=== PATIENT | male | born 1960 | race Caucasian/White ===

== ENCOUNTER 2016-11-05 22:10 | Observation (INO) | payer SELFPAY ==
[~2016-11-05] VITALS: Ht 180.3 cm; Wt 103.7 kg
[~2016-11-05 22:10] MED LIST: IBUP-1547 PO; IBUP-1724 PO; NO ROUTINE MEDS
--- NOTE | 2016-11-05 22:12 | NUR ---
GOWN PT CLOTHES REMOVED AND BELONGING PUT IN PERSONAL BAG AND GOWN APPLIED TO PT.
--- OUTSIDE RECORDS SUMMARY | 2016-11-05 22:14 | XMS REPORT | Continuity of Care Document ---
Author Author [facility] Organization [facility] Address Unknown Phone Unavailable Allergies Active Description Code Type Severity Reaction Onset Reported/Identified Relationship to Patient Clinical Status Yes penicillin NKMA N/A N/A 07/21/2015 Medications Problems Procedures Results Encounters ACCT No. Visit Date/Time Discharge Status Pt. Type Provider Facility Loc./Unit Complaint [id number] 07/21/2015 13:00:00 2015 16:30:00 DIS Outpatient Wilbur SAEZ, Rob Stanton [facility] Fall
--- OUTSIDE RECORDS SUMMARY | 2016-11-05 22:15 | XMS REPORT | Continuity of Care Document ---
Author Author [facility] Organization [facility] Address Unknown Phone Unavailable Support Name Relationship Address Phone LETICIA MONTEIRO MD Caregiver [address] [place] [address] [place] [address] OCDY CLINTON MD Caregiver [address] [place] [address] MEGHAN TAN APRN Caregiver [address] [place] [address] CHRISTIAN SALINAS Next Of Kin [address] [place] [id number] Insurance Providers Payer Name Policy Number Subscriber Name Relationship Self Pay Hugh Yousif 18 Self Advance Directives Directive Response Recorded Date/Time Advanced Directives Type None 12/19/13 1:03pm Problems Medical Problems Problem Onset Date Status Alcohol dependence with withdrawal Unknown Active UTI (lower urinary tract infection) Unknown Active Alcohol dependence with withdrawal Unknown Active Medications Medication Dose Route Sig Days/Qty Instructions Order Date Discontinued Date Status Aspirin 325 Mg PO 07/16/10 Active Oxazepam 15 Mg PO THREE TIMES A DAY 32 Qty 2 caps TID x 2 days then 12/19 Active Ciprofloxacin Hcl 500 Mg PO TWICE A DAY 10 Days 12/19/13 Active Social History Social History Problem Response Recorded Date/Time Smoking Status Current every day smoker 12/19/2013 1:37pm Hx Alcohol Use Y LAST DRANK ON 12/18/13 12/19/2013 1:37pm Hospital Discharge Instructions No hospital discharge instructions. Plan of Care No plan of care. Functional Status No functional status results. Allergies, Adverse Reactions, Alerts Allergen Type Severity Reaction Status Last Updated Penicillin Allergy Unknown Active 02/17/12 Immunizations Name Given Type Hx Influenza Vaccination No Historical Hx Influenza Vaccination No Historical Vital Signs Acute Vital Signs Vital Response Date/Time Temperature (Fahrenheit) 97.1 deg F (96.8 - 99.1) Temperature (Calculated Celsius) 36.64122 degrees C (36.0 - 37.3) Pulse Rate (adult) 83 bpm (60 - 100) Respiratory Rate 25 breaths/min (10 - 20) O2 Sat by Pulse Oximetry 96 % (90 - 100) Blood Pressure 129/85 mm Hg Height 5 ft 11 in Weight 268 lb Body Mass Index 37.0 kg/m^2 Results Test Source Date Result Interp. Ref. Range Comments Acetaminophen Level December 19, 2013 1:15pm < 10 UG/ML L 10-30 TOXIC <4 HR POST INGESTION: >150 MG/L;TOXIC <12 HR POST INGESTION: >50 MG/L Activated Partial Thromboplast Time July 16, 2010 10:44am 31.1 SEC N 24-36 Alanine Aminotransferase (ALT/SGPT) December 19, 2013 1:15pm 64 U/L N 21-72 Albumin December 19, 2013 1:15pm 4.3 G/DL N 3.5-5.0 Albumin/Globulin Ratio December 19, 2013 1:15pm 1.1 RATIO N 1.1-2.2 Alcohol, Quantitative December 19, 2013 1:15pm <10 MG/DL - Alkaline Phosphatase December 19, 2013 1:15pm 124 U/L N 38-126 Anion Gap December 19, 2013 1:15pm 17 MEQ/L H 5-15 Aspartate Amino Transf (AST/SGOT) December 19, 2013 1:15pm 78 U/L H 17-59 B-Type Natriuretic Peptide July 16, 2010 10:44am 111 PG/ML H 15-100 BUN/Creatinine Ratio December 19, 2013 1:15pm 29 RATIO H 6-26 Basophils # (Auto) December 19, 2013 1:15pm 0.1 T/MM3 N 0-0.2 Basophils (%) (Auto) December 19, 2013 1:15pm 1.2 % N 0-2 Blood Urea Nitrogen December 19, 2013 1:15pm 23.0 MG/DL H 9-20 Calcium Level December 19, 2013 1:15pm 9.7 MG/DL N 8.4-10.2 Calculated Osmolality December 19, 2013 1:15pm 271 MOSM/KG N 261-280 Carbon Dioxide Level December 19, 2013 1:15pm 20 MEQ/L L 22-30 Chloride Level December 19, 2013 1:15pm 101 MEQ/L N 98-107 Cholesterol Level December 09, 2010 3:00pm 209 MG/DL H 132-199 Cholesterol/HDL Ratio December 09, 2010 3:00pm 3.6 RATIO N 0-5.0 Conjugated Bilirubin February 17, 2012 3:15pm 0.00 MG/DL N 0.00-0.30 Creatinine December 19, 2013 1:15pm 0.8 MG/DL N 0.8-1.5 Eosinophils # (Auto) December 19, 2013 1:15pm 0.0 T/MM3 N 0-0.5 Eosinophils (%) (Auto) December 19, 2013 1:15pm 0.6 % N 0-4 Globulin December 19, 2013 1:15pm 3.9 G/DL H 2.4-3.6 Glucose Level December 19, 2013 1:15pm 110 MG/DL N 75-110 Group A Streptococcus Screen March 17, 2009 9:20pm Negative - Strep culture confirmation to follow Hematocrit December 19, 2013 1:15pm 54.5 % H 41-53 Hemoglobin December 19, 2013 1:15pm 18.5 GM/DL H 13.5-17.5 Hemoglobin A1c December 23, 2010 9:50am 6.1 % N 6-7 SENT TO [facility]--- 27/05 1401 --- HGBA1C previously reported as: % SENT TO [facility] J <6.0 NON-DIABETIC RANGE 6.0-7.0 ADA THERAPEUTIC RANGE >7.0 ACTION SUGGESTED Hepatitis A IgM Antibody December 23, 2010 9:50am Negative - Hepatitis B Core IgM Antibody December 23, 2010 9:50am Negative - Hepatitis B Surface Antigen December 23, 2010 9:50am Negative - Hepatitis C Antibody December 23, 2010 9:50am Negative - LDL Cholesterol, Calculated December 09, 2010 3:00pm 136.4 N 66-159 Lipase December 19, 2013 1:15pm 38 U/L N 23-300 Lymphocytes # (Auto) December 19, 2013 1:15pm 2.0 T/MM3 N 1-4.8 Lymphocytes (%) (Auto) December 19, 2013 1:15pm 30.2 % N 23-45 Magnesium Level December 19, 2013 1:15pm 1.5 MG/DL L 1.6-2.3 Mean Corpuscular Hemoglobin December 19, 2013 1:15pm 30.8 UUG N 26-34 Mean Corpuscular Hemoglobin Concent December 19, 2013 1:15pm 33.9 GM/DL N 31 -37 Mean Corpuscular Volume December 19, 2013 1:15pm 90.7 UM3 N 80-100 Mean Platelet Volume December 19, 2013 1:15pm 10.4 UM3 N 9.4-12.4 Monocytes # (Auto) December 19, 2013 1:15pm 0.5 T/MM3 N 0-0.8 Monocytes (%) (Auto) December 19, 2013 1:15pm 7.7 % N 0-9.0 Neutrophils # (Auto) December 19, 2013 1:15pm 4.1 T/MM3 N 1.8-7.7 Neutrophils (%) (Auto) December 19, 2013 1:15pm 60.2 % N 33-66 Phosphorus Level December 19, 2013 1:15pm 3.6 MG/DL N 2.5-4.5 Platelet Count December 19, 2013 1:15pm 224 T/MM3 N 130-400 Potassium Level December 19, 2013 1:15pm 3.6 MEQ/L N 3.6-5 Prothromb Time International Ratio July 16, 2010 10:44am 1.34 H 0.86- 1.10 THERAPUTIC RANGE=2.00-3.00 FOR ANTI-THROMBOSIS THERAPUTIC RANGE=2.50- 3.50 FOR IMPLANTED VALVE RDW Standard Deviation December 19, 2013 1:15pm 53.4 FL H 36.9-50.2 Rapid Plasma Reagin December 23, 2010 9:50am Nonreactive - Red Blood Count December 19, 2013 1:15pm 6.01 M/MM3 H 4.50-5.90 Salicylates Level December 19, 2013 1:15pm < 1.0 MG/DL L 2-20 Sodium Level December 19, 2013 1:15pm 138 MEQ/L N 134-144 Thyroid Stimulating Hormone (TSH) December 09, 2010 3:00pm 1.09 MIU/L N 0.47 -4.68 Total Bilirubin December 19, 2013 1:15pm 1.50 MG/DL H 0.20-1.30 Total Protein December 19, 2013 1:15pm 8.2 G/DL N 6.3-8.2 Triglycerides Level December 09, 2010 3:00pm 73 MG/DL N 40-160 Troponin I December 19, 2013 1:15pm 0.086 ng/ml N 0-0.12 Unconjugated Bilirubin February 17, 2012 3:15pm 0.00 MG/DL N 0.00-1.10 Uric Acid July 16, 2010 10:44am 5.6 MG/DL N 3.5-8.5 Urine Amphetamines Screen February 17, 2012 3:30pm Negative NG/ML - Urine Bacteria December 19, 2013 1:40pm 3+ H - Has specimen been collected/ obtained? Y Urine Barbiturates Screen February 17, 2012 3:30pm Positive NG/ML - Urine Benzodiazepines Screen February 17, 2012 3:30pm Negative NG/ML - Urine Bilirubin December 19, 2013 1:40pm 3+ H - Has specimen been collected /obtained? Y Urine Blood December 19, 2013 1:40pm Trace-intact H - Has specimen been collected/obtained? Y Urine Cocaine Screen February 17, 2012 3:30pm Negative NG/ML - Urine Collection Type December 19, 2013 1:40pm Cleancatch-midstream - Has specimen been collected/obtained? Y Urine Color December 19, 2013 1:40pm [place] - Has specimen been collected /obtained? Y Urine Culture Indicated December 19, 2013 1:40pm Cult reflexed &setup - Has specimen been collected/obtained? Y Urine Drug Screen Confirmation February 17, 2012 3:56pm Sent out - Urine Glucose (UA) December 19, 2013 1:40pm Trace H - Has specimen been collected/obtained? Y Urine Ketones December 19, 2013 1:40pm 2+ H - Has specimen been collected/ obtained? Y Urine Leukocyte Esterase December 19, 2013 1:40pm 1+ H - Has specimen been collected/obtained? Y Urine Mucus December 19, 2013 1:40pm Present - Has specimen been collected/obtained? Y Urine Nitrite December 19, 2013 1:40pm Positive H - Has specimen been collected/obtained? Y Urine Opiates Screen February 17, 2012 3:30pm Negative NG/ML - Urine Phencyclidine Screen February 17, 2012 3:30pm Negative NG/ML - Urine Protein December 19, 2013 1:40pm 2+ H - Has specimen been collected/ obtained? Y Urine RBC December 19, 2013 1:40pm None seen /HPF - Has specimen been collected/obtained? Y Urine Specific [place] December 19, 2013 1:40pm 1.015 - Has specimen been collected/obtained? Y Urine Squamous Epithelial Cells December 19, 2013 1:40pm >50 - Has specimen been collected/obtained? Y Urine Tricyclic Antidepressants February 17, 2012 3:30pm Negative NG/ML - Urine Turbidity December 19, 2013 1:40pm Sl cloudy - Has specimen been collected/obtained? Y Urine Urobilinogen December 19, 2013 1:40pm >=8.0 EU/DL H - Has specimen been collected/obtained? Y Urine WBC December 19, 2013 1:40pm 20-30 /HPF H - Has specimen been collected/obtained? Y Urine pH December 19, 2013 1:40pm 6.5 - Has specimen been collected/ obtained? Y VLDL Cholesterol December 09, 2010 3:00pm 14.6 MG/DL N 0-28 White Blood Count December 19, 2013 1:15pm 6.8 T/MM3 N 4.5-11.0 Chemistry Specimen Hemolysis December 19, 2013 1:15pm < 15 0-25 0-25: No Hemolysis.26-70: Slight Hemolysis - can falsely elevate K and Urine Protein. 71-285: Moderate Hemolysis - can falsely elevate K, Troponin I, CA 19-9, PTH, CSF GLucose, and Urine Protein, and can falsely decrease Phenytoin. 286-999: Gross Hemolysis - can falsely elevate K, Troponin I, CA 19-9, PTH, CSF Glucose, and Urine Protine, and can falsely decrease Phenytoin. Recommend specimen recollection. Lab Scanned Report February 19, 2012 3:12pm [facility]FER[facility] [id number] - HDL Cholesterol Direct December 09, 2010 3:00pm 58 MG/DL N 40-60 HIV (1&2) Antibody Rapid December 23, 2010 9:50am Negative - Urine Cannabinoids Screen February 17, 2012 3:30pm Positive NG/ML - Turbidity December 19, 2013 1:15pm < 20 0-20 Glomerular Filtration Rate Calc December 19, 2013 1:15pm 102 - Immature Granulocyte # (Auto) December 19, 2013 1:15pm 0.01 T/MM3 N 0.00- 0.03 Immature Granulocyte % (Auto) December 19, 2013 1:15pm 0.1 % N 0.0-0.5 Icterus Index December 19, 2013 1:15pm < 2 0-7 Urine Microscopic Not Indicated February 17, 2012 3:30pm Not indicated - Has specimen been collected/obtained? Y Group A Streptococcus Culture Throat March 17, 2009 9:28pm Urine Culture Urine, Clean Catch-Midstream December 19, 2013 2:25pm Strep Mitis/ Oralis Procedures Procedure Status Date Provider(s) THER/PROPH/DIAG IV INF INIT completed 12/19/13 THER/DIAG CONCURRENT INF completed 12/19/13 Encounters Encounter Location Date/Time Departed Emergency Room [facility] 12/19/13 1:02pm Recent Diagnosis
--- OUTSIDE RECORDS SUMMARY | 2016-11-05 22:15 | XMS REPORT | Continuity of Care Document ---
Author Author [facility] Organization [facility] Address Unknown Phone Unavailable Support Name Relationship Address Phone KIMMY FONTANEZ DO Caregiver [address] [place] [address] Unavailable CHRISTIAN SALINAS Next Of Kin [address] [place] [address] Insurance Providers Guarantor Hugh Yousif Address [address] [facility] [address] [place] [address] Email [id number] Payer Self Pay Subscriber's Name BenjaHugh Welsh Relationship 18 Self Advance Directives Directive Response Recorded Date/Time Advanced Directives Type None 12/19/13 1:03pm Chief Complaint and Reason for Visit Chief Complaint Suicide Ideation/Attempt Reason for Visit Alcohol abuse Suicidal ideation Problems Active Problems Medical Problem Onset Date Status Abrasion Unknown Acute Alcohol dependence Unknown Acute Alcohol dependence with withdrawal Unknown Acute Alcohol dependence with withdrawal Unknown Acute Dehydration Unknown Acute Depression Unknown Acute ETOH abuse Unknown Acute Elevated transaminase level Unknown Acute Face lacerations Unknown Acute Facial trauma Unknown Acute Fall Unknown Acute Tenderness of neck Unknown Acute UTI (lower urinary tract infection) Unknown Acute Past Problems Medical Problem Onset Date Alcohol abuse Unknown Alcohol dependence Unknown Alcohol intoxication Unknown Atypical chest pain Unknown Cellulitis of right ankle Unknown Dehydration Unknown Fall Unknown Manipulative behavior Unknown Right knee pain Unknown Suicidal ideation Unknown Tenderness of neck Unknown Medications Current Home Medications Medication Dose Units Route Directions Days Qty Instructions Start Date Ibuprofen 200 Mg Tablet 400 Mg Oral Every 4 Hours as needed for Pain 07/22/16 Ibuprofen 800 Mg Tablet 1 Tab Oral Every 8 Hours as needed for Pain 10 Days 30 Tablet 07/22/16 No Routine Meds 05/15/16 Past Home Medications Medication Directions Ordered Status Ibuprofen 200 Mg Tablet, 2 Tab Oral Every 4 Hours as needed for Pain Discontinued Social History Social History Problem Response Recorded Date/Time Onset Date Status Hx Substance Use No 08/05/2016 1:10pm Not Applicable Not Applicable Hx Alcohol Use Y HALF A LITER OF VODKA/DAY FOR THE LAST 2-3 DAYS 08/05/2016 1 :10pm Not Applicable Not Applicable Tobacco Usage smoke 12/21/2013 11:20pm Not Applicable Not Applicable Query Response Start Date Stop Date Smoking Status Current every day smoker Hospital Discharge Instructions No hospital discharge instructions. Plan of Care Discharge Date 08/05/16 9:40pm Disposition 01 DISCHARGED HOME, SELF-CARE Condition at Discharge Improved Instructions/Education Provided Abuse of Alcohol (ED) Suicide Prevention for Adults (ED) Prescriptions See Medication Section Referrals [facility] Order Date: 1 Week Additional Instructions/Education Drink lots of fluids. Follow up with your doctor or [facility]. Follow up with [facility] for help with your alcohol use. Follow up with [facility] or another mental health provider. Care Plan and Goals Physician Care Plan Problem: SI Goal: Follow up with primary care provider Instructions: Take medications and follow care plan as discussed/written Functional Status No functional status results. Allergies, Adverse Reactions, Alerts Allergen Type Severity Reaction Status Last Updated Penicillin Allergy Unknown Active 08/05/16 Immunizations Query Response on File Recorded Date/Time Hx Influenza Vaccination No 04/14/14 9:59pm Hx Tetanus, Diptheria, Pertussis N UNKNOWN 04/14/14 9:50pm Hx Influenza Vaccination No 04/14/14 9:59pm Hx Tetanus, Diptheria, Pertussis N UNKNOWN 04/14/14 9:50pm Tdap Vaccine Hx PT UNSURE OF 07/22/16 5:50pm Vital Signs Acute Vital Signs Vital Response Date/Time Temperature (Fahrenheit) 98.3 deg F (96.8 - 99.1) 08/05/2016 9:40pm Temperature (Calculated Celsius) 36.12935 degrees C (36.0 - 37.3) 08/05/2016 9:40pm Pulse Rate (adult) 70 bpm (60 - 100) 08/05/2016 9:40pm Respiratory Rate 22 breaths/min (10 - 20) 08/05/2016 9:40pm O2 Sat by Pulse Oximetry 97 % (90 - 100) 08/05/2016 9:40pm Blood Pressure 103/68 mm Hg 08/05/2016 9:40pm Height (Feet) 5 feet 08/05/2016 1:03pm Height (Inches) 11.00 inches 08/05/2016 1:03pm Weight (Kilograms) 108.600 kg 08/05/2016 1:03pm Body Mass Index (BMI) 33.0 08/05/2016 1:03pm Results Laboratory Results Test Name Result Units Flags Reference Collection Date/Time Result Date/ Time Comments D-Dimer 355 NG/ML H 0-230 06/15/2016 2:12pm 06/15/2016 3:07pm <230 NG/ ML D-DU=PRESUMPTIVE NEGATIVE FOR PE OR DVT >230 NG/ML D-DU=ADDITIONAL EVAL FOR PE OR DVT RECOMMENDED Lipase 34 U/L 23-300 06/15/2016 2:12pm 06/15/2016 3:26pm C-Reactive Protein 40.1 MG/L H 0-9 07/22/2016 12:46pm 07/22/2016 1:54pm Body Fluid Color YELLOW 07/22/2016 3:47pm 07/22/2016 4:09pm Body Fluid Turbidity CLOUDY 07/22/2016 3:47pm 07/22/2016 4:09pm Body Fluid Total Nucleated Cells 9129 /MM3 07/22/2016 3:47pm 2016 4:09pm Body Fluid RBC 4000 /MM3 07/22/2016 3:47pm 07/22/2016 4:09pm Body Fluid Neutrophils 76 % 07/22/2016 3:47pm 07/22/2016 4:23pm Body Fluid Lymphocytes 4 % 07/22/2016 3:47pm 07/22/2016 4:23pm Body Fluid Monocytes 20 % 07/22/2016 3:47pm 07/22/2016 4:23pm Body Fluid Eosinophils 0 % 07/22/2016 3:47pm 07/22/2016 4:23pm Body Fluid Basophils 0 % 07/22/2016 3:47pm 07/22/2016 4:23pm Body Fluid Other Cells (%) 0 % 07/22/2016 3:47pm 07/22/2016 4:23pm Body Fluid Type SYNOVIAL FLUID 07/22/2016 3:47pm 07/22/2016 4:09pm Body Fluid Crystal Appearance Cloudy A 07/22/2016 3:47pm 07/23/2016 11:52am Body Fluid Crystal Color Yellow A 07/22/2016 3:47pm 07/23/2016 11: 52am Body Fluid Crystal Quantity None 07/22/2016 3:47pm 07/23/2016 11: 52am Synovial Fluid Source - 07/22/2016 3:47pm 07/23/2016 11:52am Crystal Exam, Synovial Fluid performed at [facility], [address] [facility], [place] [address] Cbx Operator Solange Stanton DO White Blood Count 6.3 T/MM3 4.5-11.0 08/05/2016 1:08/05/2016 1: 45pm Red Blood Count 4.47 M/MM3 L 4.50-5.90 08/05/2016 1:08/05/2016 1: 45pm Hemoglobin 14.1 GM/DL 13.5-17.5 08/05/2016 1:08/05/2016 1:45pm Hematocrit 42.2 % 41-53 08/05/2016 1:08/05/2016 1:45pm Mean Corpuscular Volume 94.4 UM3 80-100 08/05/2016 1:08/05/2016 1: 45pm Mean Corpuscular Hemoglobin 31.5 UUG 26-34 08/05/2016 1:2016 1:45pm Mean Corpuscular Hemoglobin Concent 33.4 GM/DL 31-37 08/05/2016 1:08/05/2016 1:45pm RDW Standard Deviation 50.3 FL H 36.9-50.2 08/05/2016 1:08/05/2016 1:45pm Platelet Count 239 T/MM3 130-400 08/05/2016 1:08/05/2016 1:45pm Mean Platelet Volume 9.1 UM3 L 9.4-12.4 08/05/2016 1:08/05/2016 1: 45pm Neutrophils (%) (Auto) 60.4 % 33-66 08/05/2016 1:08/05/2016 1: 45pm Lymphocytes (%) (Auto) 31.2 % 23-45 08/05/2016 1:08/05/2016 1: 45pm Monocytes (%) (Auto) 6.3 % 0-9.0 08/05/2016 1:08/05/2016 1:45pm Eosinophils (%) (Auto) 1.1 % 0-4 08/05/2016 1:08/05/2016 1:45pm Basophils (%) (Auto) 0.8 % 0-2 08/05/2016 1:31pm 08/05/2016 1:45pm Immature Granulocyte % (Auto) 0.2 % 0.0-0.5 08/05/2016 1:31p2016 1:45pm Absolute Neutrophils (auto) 3.8 T/MM3 1.8-7.7 08/05/2016 1:31pm 2016 1:45pm Absolute Lymphocytes (auto) 2.0 T/MM3 1-4.8 08/05/2016 1:31p2016 1:45pm Absolute Monocytes (auto) 0.4 T/MM3 0-0.8 08/05/2016 1:31pm 08/05/2016 1:45pm Absolute Eosinophils (auto) 0.1 T/MM3 0-0.5 08/05/2016 1:31p 2016 1:45pm Absolute Basophils (auto) 0.1 T/MM3 0-0.2 08/05/2016 1:31p 08/05/2016 1:45pm Absolute Immature Granulocyte (auto 0.01 T/MM3 0.00-0.03 08/05/2016 1: 31p 08/05/2016 1:45pm Icterus Index < 2 0-7 08/05/2016 1:10pm 08/05/2016 1:33pm Chemistry Specimen Hemolysis < 15 0-25 08/05/2016 4:18pm 08/05/2016 6 :29pm 0-25: Specimen Exhibited No Hemolysis. Turbidity < 20 0-20 08/05/2016 1:10pm 08/05/2016 1:33pm Sodium Level 141 MEQ/L 134-144 08/05/2016 1:10pm 08/05/2016 1:33pm Potassium Level 3.7 MEQ/L 3.6-5 08/05/2016 1:10pm 08/05/2016 1:33pm Chloride Level 107 MEQ/L 98-107 08/05/2016 1:10pm 08/05/2016 1:33pm Carbon Dioxide Level 21 MEQ/L L 22-30 08/05/2016 1:10pm 08/05/2016 1: 33pm Anion Gap 13 MEQ/L 5-15 08/05/2016 1:10pm 08/05/2016 1:33pm Blood Urea Nitrogen 5.0 MG/DL L 9-20 08/05/2016 1:10pm 08/05/2016 1: 33pm Creatinine 0.5 MG/DL L 0.8-1.5 08/05/2016 1:10pm 08/05/2016 1:33pm BUN/Creatinine Ratio 10 RATIO 6-26 08/05/2016 1:10pm 08/05/2016 1:33pm Glomerular Filtration Rate Calc 173 08/05/2016 1:10pm 08/05/2016 1: 33pm Glucose Level 86 MG/DL 75-110 08/05/2016 1:1008/05/2016 1:33pm Calculated Osmolality 267 MOSM/KG 261-280 08/05/2016 1:10pm 08/05/2016 1:33pm Calcium Level 8.7 MG/DL 8.4-10.2 08/05/2016 1:10pm 08/05/2016 1:33pm Total Bilirubin 0.60 MG/DL 0.20-1.30 08/05/2016 1:10pm 08/05/2016 1: 33pm Alkaline Phosphatase 96 U/L 38-126 08/05/2016 1:10pm 08/05/2016 1:33pm Total Protein 7.2 G/DL 6.3-8.2 08/05/2016 1:10pm 08/05/2016 1:33pm Albumin 3.7 G/DL 3.5-5.0 08/05/2016 1:10pm 08/05/2016 1:33pm Globulin 3.5 G/DL 2.4-3.6 08/05/2016 1:10pm 08/05/2016 1:33pm Albumin/Globulin Ratio 1.1 RATIO 1.1-2.2 08/05/2016 1:1008/05/2016 1 :33pm Aspartate Amino Transf (AST/SGOT) 25 U/L 17-59 08/05/2016 1:10pm 2016 1:33pm Alanine Aminotransferase (ALT/SGPT) 26 U/L 21-72 08/05/2016 1:10pm 07/2016 1:33pm Troponin I < 0.012 ng/ml 0-0.12 08/05/2016 4:18pm 08/05/2016 6:29pm Troponin values with a difference of 55% increase from orginal troponin value represent a true biological DELTA value. (%increase Calc=Orginal Troponin value, divided by subsequent Troponin value, multiplied by 100) Acetaminophen Level < 10 UG/ML L 10-30 08/05/2016 1:10pm 08/05/2016 1: 33pm TOXIC <4 HR POST INGESTION: >150 MG/L; TOXIC <12 HR POST INGESTION: >50 MG/L Salicylates Level < 1.0 MG/DL L 2-20 08/05/2016 1:10pm 08/05/2016 1: 33pm Alcohol, Quantitative 114 MG/DL <10 08/05/2016 7:05pm 08/05/2016 7: 23pm Urine Collection Type CLEANCATCH-MIDSTREAM 08/05/2016 2:17pm 2016 2:24pm Urine Color YELLOW YELLOW 08/05/2016 2:17pm 08/05/2016 2:24pm Urine Turbidity CLEAR CLEAR 08/05/2016 2:17pm 08/05/2016 2:24pm Urine Specific [place] <=1.005 L 1.015-1.025 08/05/2016 2:17pm 2016 2:24pm Urine pH 6.0 5.0-8.0 08/05/2016 2:17pm 08/05/2016 2:24pm Urine Leukocyte Esterase NEGATIVE NEGATIVE 08/05/2016 2:17pm 2016 2:24pm Urine Nitrite NEGATIVE NEGATIVE 08/05/2016 2:17pm 08/05/2016 2:24pm Urine Protein NEGATIVE NEGATIVE 08/05/2016 2:17pm 08/05/2016 2:24pm Urine Glucose (UA) NEGATIVE NEGATIVE 08/05/2016 2:17pm 08/05/2016 2: 24pm Urine Ketones NEGATIVE NEGATIVE 08/05/2016 2:17pm 08/05/2016 2:24pm Urine Urobilinogen 0.2 EU/DL NORMAL 08/05/2016 2:17pm 08/05/2016 2: 24pm Urine Bilirubin NEGATIVE NEGATIVE 08/05/2016 2:17pm 08/05/2016 2: 24pm Urine Blood NEGATIVE NEGATIVE 08/05/2016 2:17pm 08/05/2016 2:24pm Urinalysis Comment MICROSCOPIC NOT IND. 08/05/2016 2:172016 2:24pm Microbiology Results Procedure Source Organism/Result Collection Date/Time Result Date/Time Result Status Body Fluid Culture Synovial Fluid, Left Knee NO GROWTH AFTER 5 DAYS 2016 3:47pm 07/27/2016 3:50pm Final Procedures Procedure Status Date Provider(s) Hydrate iv infusion add-on Completed 05/15/16 Ther/proph/diag iv inf init Completed 05/15/16 Ther/proph/diag inj iv push Completed 06/15/16 Drain/inj joint/bursa w/o us Completed 07/22/16 THEO ESTRADA DO Ther/proph/diag inj iv push Completed 07/22/16 Encounters Encounter Location Arrival/Admit Date Discharge/Depart Date Attending Provider Departed Emergency Room [facility] 08/05/16 1:01pm 08/05/16 9: 40pm KIMMY FONTANEZ DO Departed Emergency Room [facility] 07/22/16 11:27am 07/22/16 6: 05pm THEO ESTRADA DO Departed Emergency Room [facility] 06/15/16 1:45pm 06/15/16 4: 55pm CATHLEEN ZAMORA MD Departed Emergency Room [facility] 05/15/16 8:50pm 05/15/16 11: 50pm TAHIRA GONZALEZ DO Recent Diagnosis
--- OUTSIDE RECORDS SUMMARY | 2016-11-05 22:15 | XMS REPORT | Continuity of Care Document ---
Author Author [facility] Organization [facility] Address Unknown Phone Unavailable Support Name Relationship Address Phone FRANCO KASPER MD Caregiver [facility] [address] [place] [address] Unavailable CHRISTIAN SALINAS Next Of Kin [address] [place] [address] Insurance Providers Payer Name Policy Number Subscriber Name Relationship Premises Med(Medicare/Caid/Tr Hugh Yousif 19 Self Advance Directives Directive Response Recorded Date/Time Advanced Directives Type None 12/19/13 1:03pm Problems Medical Problems Problem Onset Date Status Alcohol dependence with withdrawal Unknown Active UTI (lower urinary tract infection) Unknown Active Alcohol dependence with withdrawal Unknown Active ETOH abuse Unknown Active Abrasion Unknown Active Facial trauma Unknown Active Face lacerations Unknown Active Medications Medication Dose Route Sig Days/Qty Instructions Order Date Discontinued Date Status Ibuprofen Unknown Dose PO Q4H 04/14/14 Active Social History Social History Problem Response Recorded Date/Time Smoking Status Current every day smoker 12/19/2013 1:37pm Hx Alcohol Use Y INTOXICATED TODAY 04/14/2014 9:59pm Hospital Discharge Instructions No hospital discharge instructions. Plan of Care No plan of care. Functional Status Query Response Date Recorded Physical Hygiene Self April 14, 2014 9:59pm Disabilities None April 14, 2014 9:59pm Devices Used None April 14, 2014 9:59pm Dressing Self April 14, 2014 9:59pm Ambulation Self April 14, 2014 9:59pm Diet Self April 14, 2014 9:59pm Mental Status Alert April 14, 2014 10:26pm Disabilities None April 14, 2014 9:59pm Devices Used None April 14, 2014 9:59pm Physical Hygiene Self April 14, 2014 9:59pm Dressing Self April 14, 2014 9:59pm Ambulation Self April 14, 2014 9:59pm Diet Self April 14, 2014 9:59pm Allergies, Adverse Reactions, Alerts Allergen Type Severity Reaction Status Last Updated Penicillin Allergy Unknown Active 04/14/14 Immunizations Name Given Type Hx Influenza Vaccination No Historical Hx Tetanus, Diptheria, Pertussis N UNKNOWN Historical Hx Influenza Vaccination No Historical Hx Tetanus, Diptheria, Pertussis N UNKNOWN Historical Vital Signs Acute Vital Signs Vital Response Date/Time Temperature (Fahrenheit) 97.8 deg F (96.8 - 99.1) Temperature (Calculated Celsius) 36.60367 degrees C (36.0 - 37.3) Pulse Rate (adult) 63 bpm (60 - 100) Respiratory Rate 18 breaths/min (10 - 20) O2 Sat by Pulse Oximetry 98 % (90 - 100) Blood Pressure 113/74 mm Hg Height 5 ft 11 in Weight 260 lb Body Mass Index 36.0 kg/m^2 Results Test Source Date Result Interp. [...] 1:15pm 1.1 RATIO N 1.1-2.2 Alcohol, Quantitative April 14, 2014 12:00am 338 MG/DL - Alkaline Phosphatase December 19, 2013 [...] 9:50am 6.1 % N 6-7 SENT TO [facility]--- 27/05 1401 --- HGBA1C previously reported as: % SENT TO [facility] J <6.0 NON-DIABETIC RANGE 6.0-7.0 ADA THERAPEUTIC [...] Y Urine Color December 19, 2013 1:40pm [place] - Has specimen been collected /obtained? Y [...] Has specimen been collected/obtained? Y Urine Specific [place] December 19, 2013 1:40pm 1.015 - Has [...] Report February 19, 2012 3:12pm REFERENCE LAB [id number] - HDL Cholesterol Direct December 09, 2010 [...] 19, 2013 2:25pm Strep Mitis/ Oralis Procedures No known history of procedures. Encounters Encounter Location Date/Time Departed Emergency Room [facility] 04/14/14 9:17pm Recent Diagnosis
[2016-11-05] MEDS ORDERED: IBUP-1547 PO (22:25)
--- OUTSIDE RECORDS SUMMARY | 2016-11-05 22:30 | XMS REPORT | Continuity of Care Document ---
Author Author [facility] Organization [facility] Address Unknown Phone Unavailable Support Name Relationship Address Phone LETICIA MONTEIRO MD Caregiver [address] [place] [address] [place] [address] CODY CLINTON MD Caregiver [address] [place] [address] MEGHAN TAN APRN Caregiver [address] [place] [address] CHRISTIAN SALINAS Next Of Kin [address] [place] [id number] Insurance Providers Payer Name Policy Number Subscriber [...] F (96.8 - 99.1) Temperature (Calculated Celsius) 36.99966 degrees C (36.0 - 37.3) Pulse Rate [...] 9:50am 6.1 % N 6-7 SENT TO [facility]--- 27/05 1401 --- HGBA1C previously reported as: % SENT TO [facility] J <6.0 NON-DIABETIC RANGE 6.0-7.0 ADA [...] Y Urine Color December 19, 2013 1:40pm [place] - Has specimen been collected /obtained? Y [...] Has specimen been collected/obtained? Y Urine Specific [place] December 19, 2013 1:40pm 1.015 - Has [...] Report February 19, 2012 3:12pm REFERENCE LAB [id number] - HDL Cholesterol Direct December 09, 2010 [...] Encounters Encounter Location Date/Time Departed Emergency Room [facility] 12/19/13 1:02pm Recent Diagnosis
--- OUTSIDE RECORDS SUMMARY | 2016-11-05 22:30 | XMS REPORT | Continuity of Care Document ---
Author Author [facility] Organization [facility] Address Unknown Phone Unavailable Allergies Active Description Code Type Severity Reaction Onset Reported/Identified Relationship to Patient Clinical Status Yes penicillin NKMA N/A N/A 07/21/2015 Medications Problems Procedures Results Encounters ACCT No. Visit Date/Time Discharge Status Pt. Type Provider Facility Loc./Unit Complaint [id number] 07/21/2015 13:00:00 2015 16:30:00 DIS Outpatient Wilbur SAEZ, Rob Stanton [facility] Fall
--- OUTSIDE RECORDS SUMMARY | 2016-11-05 22:30 | XMS REPORT | Continuity of Care Document ---
Author Author [facility] Organization [facility] Address Unknown Phone Unavailable Support Name Relationship Address Phone FRANCO KASPER MD Caregiver [facility] [address] [place] [address] Unavailable CHRISTIAN SALINAS Next Of Kin [address] [place] [address] Insurance Providers Payer Name Policy Number Subscriber [...] F (96.8 - 99.1) Temperature (Calculated Celsius) 36.15414 degrees C (36.0 - 37.3) Pulse Rate [...] 9:50am 6.1 % N 6-7 SENT TO [facility]--- 27/05 1401 --- HGBA1C previously reported as: % SENT TO [facility] J <6.0 NON-DIABETIC RANGE 6.0-7.0 [...] Y Urine Color December 19, 2013 1:40pm [place] - Has specimen been collected /obtained? Y [...] Has specimen been collected/obtained? Y Urine Specific [place] December 19, 2013 1:40pm 1.015 - Has [...] Report February 19, 2012 3:12pm REFERENCE LAB [id number] - HDL Cholesterol Direct December 09, 2010 [...] Encounters Encounter Location Date/Time Departed Emergency Room [facility] 04/14/14 9:17pm Recent Diagnosis
--- NOTE | 2016-11-05 22:34 | NUR ---
PROVIDER CHRISTIANO TEJEDA IN ROOM W/ PT.
--- NOTE | 2016-11-05 22:39 | NUR ---
LAB LAB IN ROOM FOR UADS AND BLOOD DRAW W/ IV CHARTED.
--- NOTE | 2016-11-05 22:40 | ERPDOC ---
Departure Disposition Decision Date: November 06, 2016 Disposition Decision Time: 13:50 (TEGAN EVANS MD) Disposition: 02 TO OBS [facility] [place] Impression Impression (ESTEBAN HUGHES APRN) Impression: Primary Impression: Ventricular tachycardia by electrocardiogram Additional Impressions: Alcohol abuse Ventricular trigeminy Suicidal ideation Severity: Moderate (TEGAN EVANS MD) Condition: Improved Seen By: Physician only (TEGAN EVANS MD) Problems/Meds/Labs Reviewed?: Yes Medications reviewed and manag: Yes (TEGAN EVANS MD) Mental Status: Alert (ESTEBAN HUGHES APRN) Follow up care ordered?: Yes (TEGAN EVANS MD) HPI - General Medical General Chief Complaint: Substance Abuse Stated Complaint: DETOX Time Seen by Provider: 22:24 Source: patient Exam Limitations: no limitations (ESTEBAN HUGHES APRN) Time Seen by Provider: 22:24 (FRANCO KASPER MD) Time Seen by Provider: 06:07 (TEGAN EVANS MD) HPI - General Medical Initial Comments He presents to [facility] for request of detox. He wants to be admitted to after he detoxes. Today he report that he was having suicidal thoughts. Wanted to end his life. He did not have a plan but has had suicide attempts in the past. He has been drinking about a liter of vodka daily for the last few weeks. Has a history of ETOH abuse, denies any other drug usage. [facility] and so was brought in by his friends. Occurred At: home Onset: Gradual Duration: 12-24 hrs Severity: moderate Associated Symptoms: DENIES: chest pain, cough, diaphoresis, fever/chills, headaches, loss of appetite, malaise, nausea/vomiting, rash, seizure, shortness of breath, syncope, weakness Hx of Similar Symptoms: Yes (ESTEBAN HUGHES APRN) Allergies: Coded Allergies: Penicillins (Verified Allergy, Unknown, 11/06/16) Past History Past Medical History Metabolic: gout, hypertension Hx Echocardiogram: Yes (global hypokinesis) Date Last Echocardiogram: Dec 12, 2010 Ejection Fraction (%): 45 Musculoskeletal: osteoarthritis Psychological: alcohol abuse, depression (ESTEBAN HUGHES APRN) Surgical History General: appendix, gallbladder (ESTEBAN HUGHES APRN) Family History Family PMH: FOUND: other (NOLD,ESTEBAN N VISUAL INSPECTOR) Vaccines Hx Influenza Vaccination: No Hx Tetanus, Diptheria, Pertuss: No (UNKNOWN) (NOLD,ESTEBAN N VISUAL INSPECTOR) Social History Does patient use chewing tobac: No Second Hand Exposure: No Substance Use Type: does not use Substance last used: prior to arrival Alcohol Intake: daily Last Drink: hours (ago) Marital Status: Single Housing: house Service: No Occupational Hazard: No Advance Directives: Yes Full Code (NOLD,ESTEBAN N VISUAL INSPECTOR) Review of Systems Constitutional Constitutional: DENIES: chills, dizziness, fatigue, fever, weakness (NOLD, ESTEBAN N VISUAL INSPECTOR) Eyes Vision: DENIES: blurring, double vision (NOLD,ESTEBAN N VISUAL INSPECTOR) ENMT Ears: DENIES: drainage, pain Sinuses: DENIES: congestion, rhinorrhea Mouth/Throat: DENIES: painful swallowing, scratchy throat, sore throat (NOLD, ESTEBAN N VISUAL INSPECTOR) Cardiovascular Cardiac: DENIES: chest pain, orthopnea Rhythm/Rate: DENIES: irregular beat, palpitations Vascular: DENIES: pedal edema, unilateral swelling (NOLD,ESTEBAN N VISUAL INSPECTOR) Pulmonary Respiratory: DENIES: cough, dyspnea, sputum, tachypnea (NOLD,ESTEBAN N VISUAL INSPECTOR) GI Upper Abdomen: DENIES: nausea, pain, vomiting Lower Abdomen: DENIES: constipation, diarrhea, pain (NOLD,ESTEBAN N VISUAL INSPECTOR) Neurological General: DENIES: headache, numbness, tingling, weakness (NOLD,ESTEBAN N VISUAL INSPECTOR) Physical Exam General General Nourishment: well nourished, well developed, appears stated age, no acute distress, adult General Body Habitus: well groomed (NOLD,ESTEBAN N VISUAL INSPECTOR) Vitals and Pain First Documented Vital Signs Date Time Temp Pulse Resp B/P Pulse Ox O2 Delivery O2 Flow Rate FiO2 11/05/16 22:10 97.9 75 20 142/91 96 Room Air (FRANCO KASPER MD) Vitals and Pain Weight: Kilograms: Height (feet): 5 Height (inches): 11.00 Triage Pain Scale: (NODEL,ESTEBAN N VISUAL INSPECTOR) RN VS reviewed by Provider: Yes (ESTEBAN HUGHES N VISUAL INSPECTOR) Normal Exams: ENMT: No facial trauma, nasal exudates, pharyngeal erythema, or exudates are noted Neck: Full range of motion, without adenopathy, JVD, bruits or thyromegaly Chest/Resp: Clear all leggett, with good airflow, and symmetry bilaterally CV: Regular rate and rhythm, without murmur or gallop, Pulses 2+ all extremities, capillary refill, <2 seconds all ext., no pedal edema noted Abdomen: Bowel sounds positive, soft, non-tender, non-distended, no hepatosplenomegaly, masses or bruits noted Lymphatic: No lymphadenopathy, or lymphedema noted Integumentary: No rashes, hives, or bruising noted Neurologic: Patient is alert, and oriented, cranial nerves, motor/sensory/ cerebellar, exams w/o gross deficits, to observation Psychiatric: Patient exhibits, appropriate attention, emotion and affect (ELLEN,ESTEBAN Paredes VISUAL INSPECTOR) Differential Diagnoses Considering: Alcohol Intoxication, Hypo/Hyperglycemia, Hypo/Hyperkalemia, Hypo/ Hypernatremia, Other (SI, HI, depression, anxiety) (ELLEN,ESTEBAN Paredes VISUAL INSPECTOR) Progress Results/Orders Orders Procedure Category Date Status Time Acetaminophen LAB 11/05/16 Complete Salicylate LAB 11/05/16 Complete Ethanol LAB 11/05/16 Complete Cbc W/Auto LAB 11/05/16 Complete Diff-Reflex Manual Bmp - Basic Metabolic LAB 11/05/16 Complete Panel Iv Lock (Ed Only) EDM 11/05/16 Transmitted 22:31 Drug Screen LAB 11/05/16 Complete Urine-Test At [facility] 22:31 Normal Saline PHA 11/05/16 Complete (Norm... W/Multi-Vit 22:45 Ethanol LAB 11/06/16 Complete (FRANCO KASPER MD) Lab Results Laboratory Tests Test 11/05/16 22:39 11/05/16 22:44 11/05/16 23:03 11/06/16 04:37 Urine Opiates Screen NegativeNG/ML Urine Oxycodone Screen NegativeNG/ML Urine Methadone Screen NegativeNG/ML Urine Propoxyphene Screen NegativeNG/ML Urine Barbiturates Screen NegativeNG/ML Urine Tricyclic Antidepressants NegativeNG/ML Urine Phencyclidine Screen NegativeNG/ML Urine Amphetamines Screen NegativeNG/ML Urine Methamphetamines Screen NegativeNG/ML Urine Benzodiazepines Screen NegativeNG/ML Urine Cocaine Screen NegativeNG/ML Urine Cannabinoids Screen NegativeNG/ML White Blood Count 4.6T/MM3 Red Blood Count 5.07M/MM3 Hemoglobin 16.9GM/DL Hematocrit 48.9% Mean Corpuscular Volume 96.4UM3 Mean Corpuscular Hemoglobin 33.3UUG Mean Corpuscular Hemoglobin Concent 34.6GM/DL RDW Standard Deviation 52.5FL Platelet Count 229T/MM3 Mean Platelet Volume 9.4UM3 Immature Granulocyte % (Auto) 0.0% Neutrophils (%) (Auto) 37.6% Lymphocytes (%) (Auto) 53.7% Monocytes (%) (Auto) 6.3% Eosinophils (%) (Auto) 1.3% Basophils (%) (Auto) 1.1% Absolute Immature Granulocyte (auto 0.00T/MM3 Absolute Neutrophils (auto) 1.7T/MM3 Absolute Lymphocytes (auto) 2.5T/MM3 Absolute Monocytes (auto) 0.3T/MM3 Absolute Eosinophils (auto) 0.1T/MM3 Absolute Basophils (auto) 0.1T/MM3 Turbidity < 20 Sodium Level 151MEQ/L Potassium Level 3.7MEQ/L Chloride Level 110MEQ/L Carbon Dioxide Level 21MEQ/L Anion Gap 20MEQ/L Blood Urea Nitrogen 8.0MG/DL Creatinine 0.6MG/DL Glomerular Filtration Rate Calc 140 BUN/Creatinine Ratio 13RATIO Glucose Level 102MG/DL Calculated Osmolality 288MOSM/KG Calcium Level 9.1MG/DL Icterus Index < 2 Chemistry Specimen Hemolysis < 15 Salicylates Level < 1.0MG/DL Acetaminophen Level < 10UG/ML Alcohol, Quantitative 312MG/DL 168MG/DL Lab Scanned Report REFERENCE [id number] (FRANCO KASPER MD) Lab Results Laboratory Tests Test 11/05/16 22:39 11/05/16 22:44 11/05/16 23:03 11/06/16 04:37 Urine Opiates Screen NegativeNG/ML Urine Oxycodone Screen NegativeNG/ML Urine Methadone Screen NegativeNG/ML Urine Propoxyphene Screen NegativeNG/ML Urine Barbiturates Screen NegativeNG/ML Urine Tricyclic Antidepressants NegativeNG/ML Urine Phencyclidine Screen NegativeNG/ML Urine Amphetamines Screen NegativeNG/ML Urine Methamphetamines Screen NegativeNG/ML Urine Benzodiazepines Screen NegativeNG/ML Urine Cocaine Screen NegativeNG/ML Urine Cannabinoids Screen NegativeNG/ML White Blood Count 4.6T/MM3 Red Blood Count 5.07M/MM3 Hemoglobin 16.9GM/DL Hematocrit 48.9% Mean Corpuscular Volume 96.4UM3 Mean Corpuscular Hemoglobin 33.3UUG Mean Corpuscular Hemoglobin Concent 34.6GM/DL RDW Standard Deviation 52.5FL Platelet Count 229T/MM3 Mean Platelet Volume 9.4UM3 Immature Granulocyte % (Auto) 0.0% Neutrophils (%) (Auto) 37.6% Lymphocytes (%) (Auto) 53.7% Monocytes (%) (Auto) 6.3% Eosinophils (%) (Auto) 1.3% Basophils (%) (Auto) 1.1% Absolute Immature Granulocyte (auto 0.00T/MM3 Absolute Neutrophils (auto) 1.7T/MM3 Absolute Lymphocytes (auto) 2.5T/MM3 Absolute Monocytes (auto) 0.3T/MM3 Absolute Eosinophils (auto) 0.1T/MM3 Absolute Basophils (auto) 0.1T/MM3 Turbidity < 20 Sodium Level 151MEQ/L Potassium Level 3.7MEQ/L Chloride Level 110MEQ/L Carbon Dioxide Level 21MEQ/L Anion Gap 20MEQ/L Blood Urea Nitrogen 8.0MG/DL Creatinine 0.6MG/DL Glomerular Filtration Rate Calc 140 BUN/Creatinine Ratio 13RATIO Glucose Level 102MG/DL Calculated Osmolality 288MOSM/KG Calcium Level 9.1MG/DL Icterus Index < 2 Chemistry Specimen Hemolysis < 15 Salicylates Level < 1.0MG/DL Acetaminophen Level < 10UG/ML Alcohol, Quantitative 312MG/DL 168MG/DL Lab Scanned Report REFERENCE [id number] Test 11/06/16 07:28 11/06/16 08:47 11/06/16 12:26 Alcohol, Quantitative 113MG/DL 82MG/DL Turbidity < 20 Sodium Level 144MEQ/L Potassium Level 3.8MEQ/L Chloride Level 108MEQ/L Carbon Dioxide Level 24MEQ/L Anion Gap 12MEQ/L Blood Urea Nitrogen 9.0MG/DL Creatinine 0.5MG/DL Glomerular Filtration Rate Calc 173 BUN/Creatinine Ratio 18RATIO Glucose Level 95MG/DL Calculated Osmolality 276MOSM/KG Calcium Level 8.8MG/DL Magnesium Level 1.5MG/DL Total Bilirubin 1.00MG/DL Icterus Index < 2 Aspartate Amino Transf (AST/SGOT) 123U/L Alanine Aminotransferase (ALT/SGPT) 81U/L Alkaline Phosphatase 112U/L Troponin I 0.017ng/ml Total Protein 7.0G/DL Albumin 3.9G/DL Globulin 3.1G/DL Albumin/Globulin Ratio 1.3RATIO Lipase 40U/L Thyroid Stimulating Hormone (TSH) 0.88MIU/L Chemistry Specimen Hemolysis 29 (NOLD,ESTEBAN N VISUAL INSPECTOR) Medications Current ED Medications Multivitamins/ Minerals/Thiamine HCl/Folic Acid/ Sodium Chloride (M.v.i. Adult/ Vit. B1/Folate/ Normal Saline IV) 1,011.2 ml @ 1,000 mls/ hr Q1H1M ONCE IV Last administered on 11/05/16t 23:07; Start 11/05/16 at 22:45; Stop 11/05/16 at 23: 45; Status DC (FRANCO KASPER MD) Progress Progress Clinical screening lab is normal with exception of alcohol EtOH elevated at 312 initially Check at the six-hour amarilys shows reduction to 168, patient has been metabolizing at his routine 25 per hour We'll plan to recheck blood alcohol at 0700 and reassess for persistent suicidal ideation at that time. If after the patient's blood alcohol level has dropped below 100, and he has persistent suicidal ideation, patient will be screened by mental health screening her for possible psychiatric admission (FRANCO KASPER MD) Progress It took until about 8:30 for patient's blood alcohol level to drop below 100. I then contacted Malena pickard and they agreed to come evaluate the patient. About 1045 they came, and so did case management to try and help with placement and social issues. Patient was set for discharge although it was noted his pulse was in the 120-140 range and his blood pressure was 190/105. Metoprolol 5 mg IV was ordered. Nursing prepared to give the med, but the patient on monitor telemetry and noted that he appeared to be in and out of V. tach. EKG was obtained which showed a run of V. tach, however computer read it as atrial fibrillation EKG looked very clearly to be a wide complex tachycardia. Dr. Hooker looked at the EKG and agreed that the patient needed admission. He recommended amiodarone drip. Patient was given bolus of 150 mg amiodarone drip was set up per protocol. Prior to speaking with Dr. Oliva I also gave 10 mg of Cardizem, which did not have much noticeable effect. Since the amiodarone was started, patient has reverted back to bigeminy, trigeminy, short episodes of V. tach, multiple PVCs. Magnesium was slightly low at 1.5, magnesium was supplemented with 2 g IV dose to be given over 2 hours. Inga Damon was very helpful, came and saw the patient and helped evaluating EKGs as well. She is taking the patient over to ICU. (TEGAN EVANS MD) ESTEBAN HUGHES APRN November 05, 2016 22:40 FRANCO KASPER MD November 06, 2016 05:02 TEGAN EVANS MD November 06, 2016 13:49
[2016-11-05] MEDS ORDERED: MULTI-VIT INF, ADULT 10 ML, THIAMINE 100 MG, FOLIC ACID 1 MG in NORMAL SALINE 1,000 ML IV ONE ×4 (22:45)
[2016-11-05 22:53] LABS: BASOPHILS # (AUTO) 0.1 T/MM3 (0-0.2); BASOPHILS % (AUTO) 1.1 % (0-2); EOSINOPHILS # (AUTO) 0.1 T/MM3 (0-0.5); EOSINOPHILS % (AUTO) 1.3 % (0-4); HCT - HEMATOCRIT 48.9 % (41-53); HGB - HEMOGLOBIN 16.9 GM/DL (13.5-17.5); LYMPHOCYTES # (AUTO) 2.5 T/MM3 (1-4.8); LYMPHOCYTES % (AUTO) 53.7 % (23-45); MEAN CORPUSCULAR HGB 33.3 UUG (26-34); MEAN CORPUSCULAR HGB CONC(MCHC 34.6 GM/DL (31-37); MEAN CORPUSCULAR VOLUME 96.4 UM3 (80-100); MEAN PLATELET VOLUME 9.4 UM3 (9.4-12.4); MONOCYTES # (AUTO) 0.3 T/MM3 (0-0.8); MONOCYTES % (AUTO) 6.3 % (0-9.0); NEUTROPHILS #(AUTO)-ABSOLUTE 1.7 T/MM3 (1.8-7.7); NEUTROPHILS % (AUTO) 37.6 % (33-66); RED BLOOD COUNT 5.07 M/MM3 (4.50-5.90); WBC - WHITE BLOOD COUNT 4.6 T/MM3 (4.5-11.0)
[2016-11-05 23:01] LABS: AMPHETAMINE SCREEN,URINE NEGATIVE; BARBITURATE SCREEN,URINE NEGATIVE; BENZODIAZEPINES SCREEN,URINE NEGATIVE; CANNABINOID SCREEN,URINE NEGATIVE; COCAINE SCREEN,URINE NEGATIVE; METHADONE SCREEN, URINE NEGATIVE; METHAMPHETAMINE SCREEN, URINE NEGATIVE; OPIATE SCREEN,URINE NEGATIVE; PHENCYCLIDINE SCREEN,URINE NEGATIVE; TRICYCLIC ANTIDEPRESSANT,URINE NEGATIVE
[2016-11-05 23:02] LABS: ACETAMINOPHEN < 10 UG/ML (10-30); ANION GAP 20 MEQ/L (5-15); BUN/CREATININE RATIO 13 RATIO (6-26); CALCIUM 9.1 MG/DL (8.4-10.2); CHLORIDE 110 MEQ/L (98-107); CO2 - CARBON DIOXIDE 21 MEQ/L (22-30); CREATININE 0.6 MG/DL (0.8-1.5); GLOMERULAR FILTRATION RATE 140; GLUCOSE 102 MG/DL (75-110); POTASSIUM 3.7 MEQ/L (3.6-5); SALICYLATE < 1.0 MG/DL (2-20); SODIUM 151 MEQ/L (134-144)
[2016-11-05 23:08] LABS: ETHANOL 312 MG/DL (<10)
[2016-11-06] VITALS (47 sets, daily range): BP systolic 133–176; BP diastolic 69–119; PULSE 75–127; RESP 14–45; TEMP 97.7–98.6; O2SAT 93–98; Ht 180.3 cm; Wt 103.7 kg
--- NOTE | 2016-11-06 01:05 | NUR ---
INPUT PT REPORTS HUNGRY, GIVEN 1 SANDWICH,CHIPS, GRAHM CRACKERS AND ORANGE AND ATE ALL ITEMS.
--- NOTE | 2016-11-06 03:08 | NUR ---
ELIMINATION PT WENT TO BR W/O INCIDENT.
--- NOTE | 2016-11-06 03:50 | NUR ---
INPUT PT REPORTS THIRSTY GIVEN 1 8 OZ GLASS OF WATER AND VS CHARTED.
--- NOTE | 2016-11-06 04:33 | NUR ---
LAB LAB IN ROOM FOR ETOH BLOOD DRAW.
--- NOTE | 2016-11-06 06:01 | NUR ---
REPORT REPORT GIVEN TO DEYANIRA RN AND PT. CARE HAND OFF.
--- NOTE | 2016-11-06 09:00 | NUR ---
INTAKE APPLESAUCE, JUICE, MILK, CEREAL TAKEN ORALLY AT THIS TIME
--- NOTE | 2016-11-06 09:15 | NUR ---
DR EVANS IN
--- NOTE | 2016-11-06 10:39 | NUR ---
PV SCREENER HERE
--- NOTE | 2016-11-06 11:17 | NUR ---
INTAKE GIVEN ICE WATER PER REQUEST
--- NOTE | 2016-11-06 11:40 | NUR ---
MONITOR PT HR NOTED TO BE GOING BETWEEN 100 & 144. NURSE TOOK APICAL PULSE & IT IS ACCURATE AT 130. REPORTED TO DR EVANS & LOPRESSOR ORDERED. PT PLACED ON MONITOR & WIDE COMPLEX TACHY NOTED WITH RADIAL PULSE PALPATED CORRESPONDINGLY.
[2016-11-06] MEDS ORDERED: METOPROLOL 5mg/5ml INJECTION IV ONE ×2 (11:45→18:00)
--- NOTE | 2016-11-06 11:51 | NUR ---
COMFORT PT DENIES ANY CP OR OTHER SX AT THIS TIME
--- NOTE | 2016-11-06 11:52 | NUR ---
ED CONSULT THIS WORKER MET WITH PT ON THIS DATE. PT REPORTED THAT HE IS INTERESTED IN RECEIVING DRUG AND ALCOHOL TREATMENT. PT REPORTED THAT HE HAS AN AA SPONSOR. THIS WORKER ALSO REVIEWED SOCIAL NEEDS. PT REPORTED THAT HE GETS ASSISTANCE FROM [employer], HIS BROTHER AND A FRIEND. THIS WORKER ALSO PROVIDED APPLICATION FOR FOOD STAMPS REQUESTED. [facility] THIS WORKER GOT APPOINTMENT WITH [facility] FOR 11/10/16 AT 2PM. TRANSPORTATION IS PROVIDED BY [facility]. PT IS PLANNING TO ALSO FOLLOW UP WITH BEHAVIORAL HEALTH. REFERRAL MADE TO SEN AT [facility]. THIS WORKER SPOKE TO NEELIMA, DIAGNOSTICS TECH, AT [facility] AND THEY WILL ASSIST PT IN THE 25 DOLLAR FEE FOR THE APPOINTMENT. PT WAS GIVEN THIS WORKER'S CONTACT INFORMATION AND ADVISED TO CALL WITH ANY NEEDS. PT'S UPDATED PHONE NUMBER IS [phone]. Addendum: 11/06/16 at 1204 by JANET PUGH Amended: Links added.
[2016-11-06] MEDS ORDERED: DILTIAZEM 25mg/5ml INJECTION IV ONE (12:00)
--- NOTE | 2016-11-06 12:01 | NUR ---
MONITOR HR IMPROVING.
[2016-11-06] MEDS ORDERED: AMIODARONE 150 MG in NORMAL SALINE 100 ML IV ONE (12:15)
[2016-11-06] MEDS ORDERED: AMIODARONE 900 MG in NORMAL SALINE 500 ML IV SCH (12:15)
--- NOTE | 2016-11-06 12:45 | NUR ---
MED AMIODARONE BOLUS STARTED. MONITOR SR W TRIGEMINAL PVC
[2016-11-06 12:50] LABS: ALBUMIN 3.9 G/DL (3.5-5.0); ALBUMIN/GLOBULIN RATIO 1.3 RATIO (1.1-2.2); ALKALINE PHOSPHATASE 112 U/L (38-126); ALT (SGPT) 81 U/L (21-72); ANION GAP 12 MEQ/L (5-15); AST (SGOT) 123 U/L (17-59); BUN/CREATININE RATIO 18 RATIO (6-26); CALCIUM 8.8 MG/DL (8.4-10.2); CHLORIDE 108 MEQ/L (98-107); CO2 - CARBON DIOXIDE 24 MEQ/L (22-30); CREATININE 0.5 MG/DL (0.8-1.5); GLOMERULAR FILTRATION RATE 173; GLUCOSE 95 MG/DL (75-110); LIPASE 40 U/L (23-300); MAGNESIUM 1.5 MG/DL (1.6-2.3); POTASSIUM 3.8 MEQ/L (3.6-5); SODIUM 144 MEQ/L (134-144)
--- NOTE | 2016-11-06 12:50 | NUR ---
MONITOR ACTIVITY OF VOIDING CAUSED PT TO HAVE V TACH AGAIN. REMAINS ASYMPTOMATIC
--- NOTE | 2016-11-06 12:50 | NUR ---
OUTPUT VOIDED 150 CC URINE.
--- NOTE | 2016-11-06 12:53 | NUR ---
AMIODARONE BOLUS COMPLETE. DRIP STARTED
[2016-11-06 13:20] LABS: THYROID STIM HORMONE-TSH 0.88 MIU/L (0.47-4.68)
[2016-11-06] MEDS: MAGNESIUM SULFATE 1 G in D5W 100 ML IV SCH ×2 (13:30→14:34)
--- NOTE | 2016-11-06 13:31 | NUR ---
REPORT TO JANAY NAVARRETE
--- NOTE | 2016-11-06 13:40 | NUR ---
Transfer Patient taken by cart to CCU rm#1, Christopher and Morgan in room to accept/transfer patient. Patient tolerates well and denies complaints.
--- NOTE | 2016-11-06 13:45 | NUR ---
ADMISSION Received patient from ED to CCU 1 per cart. Patient scooted self from cart to bed. Monitoring leads and wires are tangled. BP tries to cycle while patient transferring and is cancelled initially until settled. Noted multiple PVCs and runs of vtach on the monitor and patient reports that he is asymptomatic for these. Noted tremulousness.
--- OUTSIDE RECORDS SUMMARY | 2016-11-06 13:50 | XMS REPORT | Continuity of Care Document ---
Author Author [facility] Organization [facility] Address Unknown Phone Unavailable Allergies Active Description Code Type Severity Reaction Onset Reported/Identified Relationship to Patient Clinical Status Yes penicillin NKMA N/A N/A 07/21/2015 Medications Problems Procedures Results Encounters ACCT No. Visit Date/Time Discharge Status Pt. Type Provider Facility Loc./Unit Complaint [id number] 07/21/2015 13:00:00 2015 16:30:00 DIS Outpatient Wilbur SAEZ, Rob Stanton [facility] Fall
--- OUTSIDE RECORDS SUMMARY | 2016-11-06 13:51 | XMS REPORT | Continuity of Care Document ---
Author Author [facility] Organization [facility] Address Unknown Phone Unavailable Support Name Relationship Address Phone LETICIA MONTEIRO MD Caregiver [address] [place] [address] [place] [address] CODY [place] MD Caregiver [address] [place] [address] MEGHAN TAN APRN Caregiver [address] [place] [address] CHRISTIAN SALINAS Next Of Kin [address] [place] [id number] Insurance Providers Payer Name Policy Number Subscriber [...] F (96.8 - 99.1) Temperature (Calculated Celsius) [phone] degrees C (36.0 - 37.3) Pulse Rate [...] N 6-7 SENT TO [facility]--- 27/05 1401 --- HGBA1C previously reported as: % SENT TO [facility] J <6.0 NON-DIABETIC RANGE 6.0-7.0 ADA [...] Y Urine Color December 19, 2013 1:40pm [place] - Has specimen been collected /obtained? Y [...] Has specimen been collected/obtained? Y Urine Specific [place] December 19, 2013 1:40pm 1.015 - Has [...] Report February 19, 2012 3:12pm [facility]FER[facility] [id number] - HDL Cholesterol Direct December 09, 2010 [...] Encounters Encounter Location Date/Time Departed Emergency Room [facility] 12/19/13 1:02pm Recent Diagnosis
--- OUTSIDE RECORDS SUMMARY | 2016-11-06 13:51 | XMS REPORT | Continuity of Care Document ---
Author Author [facility] Organization [facility] Address Unknown Phone Unavailable Support Name Relationship Address Phone FRANCO KASPER MD Caregiver [facility] [address] [place] [address] Unavailable CHRISTIAN SALINAS Next Of Kin [address] [place] [address] Insurance Providers Payer Name Policy Number Subscriber [...] F (96.8 - 99.1) Temperature (Calculated Celsius) [phone] degrees C (36.0 - 37.3) Pulse Rate [...] 9:50am 6.1 % N 6-7 SENT TO [facility]--- 27/05 1401 --- HGBA1C previously reported as: % SENT TO [facility] J <6.0 NON-DIABETIC RANGE 6.0-7.0 ADA THERAPEUTIC [...] Y Urine Color December 19, 2013 1:40pm [place] - Has specimen been collected /obtained? Y [...] Has specimen been collected/obtained? Y Urine Specific [place] December 19, 2013 1:40pm 1.015 - Has [...] Report February 19, 2012 3:12pm [facility] [id number] - HDL Cholesterol Direct December 09, 2010 [...] Encounters Encounter Location Date/Time Departed Emergency Room [facility] 04/14/14 9:17pm Recent Diagnosis
--- NOTE | 2016-11-06 14:32 | NUR ---
RUN VTACH Continues to have multiple, multiple PVCs, salvos and short runs of vtach since admission, asymptomatic. Sono at bedside now for each. 48 beat run of vtach noted at 1434, reported to Inga NAVARRETE.
[2016-11-06] MEDS ORDERED: AMIODARONE 150 MG/3 ML IV ONE (15:00)
[2016-11-06] MEDS ORDERED: OXAZEPAM 15 MG CAPSULE PO PRN (15:00)
--- NOTE | 2016-11-06 15:01 | NUR ---
TACH, AMIODARONE Multiple runs of vtach, interspersed with periods of SR with very frequent PVCs (including couplets, salvos, bigeminy, trigeminy). Inga BALDWIN is on the unit and has ordered another 150 mg bolus of Amiodarone after discussing with Dr Hooker. Bolus is underway, diluted in 10 ml NS and given by very slow IV push, through the amiodarone drip filter. IV was patent and had brisk blood return prior to administration.
--- NOTE | 2016-11-06 15:07 | NUR ---
COMMERCIAL SHRIMPING CAPTAIN VISIT Inga at bedside interviewing and assessing patient. She discusses amiodarone with him including potential side effects on the liver, lungs, thyroid with him.
--- NOTE | 2016-11-06 15:35 | NUR ---
TRIGEMINY Heart rhythm has improved to SR with trigeminal PVCs and occasional bigeminal PVCs. There have been no significant runs of VT since second Amiodarone bolus was given.
--- NOTE | 2016-11-06 15:40 | NUR ---
MAG BOLUS Magnesium doses completed. Saline flush bag spiked behind second bag to infuse entire dose.
--- NOTE | 2016-11-06 15:50 | HPPDOC ---
SARAH BETH GOLDBERG DISPLAY CARVER 11/06/16 1519: HPI - Adult Date DATE: 11/06/16 TIME: 14:55 General Date of Admission Date of Admission: November 06, 2016 at 13:37 Chief Complaint: V TACH History of Present Illness Hugh is a 56 year old man who presented to the ED last night for request of detox. He wanted to be admitted to after he detoxes because he reported that he was having suicidal thoughts. Wanted to end his life. He did not have a plan but has had suicide attempts in the past. He has been drinking about a liter of vodka daily for the last few weeks. Has a history of ETOH abuse, denied any other drug usage. Went to and was brought in by his friends. Earlier this afternoon I was called to see the patient while he was still in the ED. He had 11 beats of Ventricular tachycardia caught on EKG. He is completely asymptomatic and unaware of the arrhythmia. He denies chest pain, pressure or tightness, denies dyspnea, nausea or vomiting. Reports some diarrhea earlier in the week and now feels shaky and somewhat anxious. Past Medical History Past Medical History Metabolic: gout, hypertension Musculoskeletal: osteoarthritis Psychological: alcohol abuse, depression Surgical History General: appendix, gallbladder Current Medications Home Meds Reported Medications [No Routine Meds] No Conflict Check 05/15/16 Discontinued Reported Medications Ibuprofen (Ibuprofen) 800 Mg Tablet, 4 TAB PO DAILY for ARTHRITIS, TAB 11/05/16 Allergies: Coded Allergies: Penicillins (Verified Allergy, Unknown, 11/06/16) Family History FOUND: other Vaccines 2011 PT UNSURE OF Social History Does patient use chewing tobac: No Second Hand Exposure: No Substance Use Type: does not use Substance last used: prior to arrival Alcohol Intake: daily Last Drink: hours (ago) Marital Status: Single Housing: house Service: No Occupational Hazard: No Advance Directives: Yes Full Code Review of Systems Constitutional: DENIES: chills, dizziness, fatigue, fever, syncope, weakness Eyes Vision: DENIES: blurring ENMT Hearing: DENIES: tinnitus Balance: DENIES: vertigo Sinuses: NOT FOUND: rhinorrhea Cardiovascular DENIES: chest pain, dyspnea on exertion, murmur, orthopnea, paroxysmal nocturnal dysp Rhythm/Rate: DENIES: irregular beat, palpitations, tachycardia Vascular: DENIES: pedal edema Pulmonary Respiratory: cough, DENIES: dyspnea, sputum GI Upper Abdomen: DENIES: nausea, vomiting Lower Abdomen: diarrhea General: DENIES: dysuria Integumentary Skin: DENIES: rash, sores Neurological General: tremor, DENIES: headache, numbness, syncope, weakness All Other Systems All Other Systems: Reviewed (remainder of 10-point ROS Neg.) Physical Exam General General Nourishment: well developed, apparent age Vital Signs Vital Signs Date Time Temp Pulse Resp B/P Pulse Ox O2 Delivery O2 Flow Rate FiO2 11/06/16 13:40 99.1 84 16 146/77 96 Room Air Height (Feet): 5 Height (Inches): 11.00 Telemetry Ectopy: PVC, Bigeminey, Trigeminey, Runs >6, Triplets, Elia ENMT Brief: FOUND: mucosa moist Neck Brief: NOT FOUND: JVD, carotid bruits Respiratory Brief: FOUND: clear all leggett, equal bilaterally, NOT FOUND: rales , wheezes Cardiovascular (brief) Cardiac Brief: NOT FOUND: click, gallop, murmur, pedal edema, regular rate, regular rhythm Abdomen (brief) Abdominal Brief: FOUND: BS normo active x4, soft, NOT FOUND: tender Integumentary (brief) Integumentary Brief: FOUND: dry, pink, warm Neurologic RN Documented GCS Eye Opening: (4)Spontaneous Verbal: (5)Oriented Motor: (6)Obeys Commands Total: Psychiatric (brief) FOUND: alert, oriented Laboratory Laboratory Tests Test 11/05/16 22:39 11/05/16 22:44 11/05/16 23:03 11/06/16 04:37 Urine Opiates Screen NegativeNG/ML Urine Oxycodone Screen NegativeNG/ML Urine Methadone Screen NegativeNG/ML Urine Propoxyphene Screen NegativeNG/ML Urine Barbiturates Screen NegativeNG/ML Urine Tricyclic Antidepressants NegativeNG/ML Urine Phencyclidine Screen NegativeNG/ML Urine Amphetamines Screen NegativeNG/ML Urine Methamphetamines Screen NegativeNG/ML Urine Benzodiazepines Screen NegativeNG/ML Urine Cocaine Screen NegativeNG/ML Urine Cannabinoids Screen NegativeNG/ML White Blood Count 4.6T/MM3 Red Blood Count 5.07M/MM3 Hemoglobin 16.9GM/DL Hematocrit 48.9% Mean Corpuscular Volume 96.4UM3 Mean Corpuscular Hemoglobin 33.3UUG Mean Corpuscular Hemoglobin Concent 34.6GM/DL RDW Standard Deviation 52.5FL Platelet Count 229T/MM3 Mean Platelet Volume 9.4UM3 Immature Granulocyte % (Auto) 0.0% Neutrophils (%) (Auto) 37.6% Lymphocytes (%) (Auto) 53.7% Monocytes (%) (Auto) 6.3% Eosinophils (%) (Auto) 1.3% Basophils (%) (Auto) 1.1% Absolute Immature Granulocyte (auto 0.00T/MM3 Absolute Neutrophils (auto) 1.7T/MM3 Absolute Lymphocytes (auto) 2.5T/MM3 Absolute Monocytes (auto) 0.3T/MM3 Absolute Eosinophils (auto) 0.1T/MM3 Absolute Basophils (auto) 0.1T/MM3 Turbidity < 20 Sodium Level 151MEQ/L Potassium Level 3.7MEQ/L Chloride Level 110MEQ/L Carbon Dioxide Level 21MEQ/L Anion Gap 20MEQ/L Blood Urea Nitrogen 8.0MG/DL Creatinine 0.6MG/DL Glomerular Filtration Rate Calc 140 BUN/Creatinine Ratio 13RATIO Glucose Level 102MG/DL Calculated Osmolality 288MOSM/KG Calcium Level 9.1MG/DL Icterus Index < 2 Chemistry Specimen Hemolysis < 15 Salicylates Level < 1.0MG/DL Acetaminophen Level < 10UG/ML Alcohol, Quantitative 312MG/DL 168MG/DL Lab Scanned Report REFERENCE [id number] Test 11/06/16 07:28 11/06/16 08:47 11/06/16 12:26 Alcohol, Quantitative 113MG/DL 82MG/DL Turbidity < 20 Sodium Level 144MEQ/L Potassium Level 3.8MEQ/L Chloride Level 108MEQ/L Carbon Dioxide Level 24MEQ/L Anion Gap 12MEQ/L Blood Urea Nitrogen 9.0MG/DL Creatinine 0.5MG/DL Glomerular Filtration Rate Calc 173 BUN/Creatinine Ratio 18RATIO Glucose Level 95MG/DL Calculated Osmolality 276MOSM/KG Calcium Level 8.8MG/DL Magnesium Level 1.5MG/DL Total Bilirubin 1.00MG/DL Icterus Index < 2 Aspartate Amino Transf (AST/SGOT) 123U/L Alanine Aminotransferase (ALT/SGPT) 81U/L Alkaline Phosphatase 112U/L Troponin I 0.017ng/ml Total Protein 7.0G/DL Albumin 3.9G/DL Globulin 3.1G/DL Albumin/Globulin Ratio 1.3RATIO Lipase 40U/L Thyroid Stimulating Hormone (TSH) 0.88MIU/L Chemistry Specimen Hemolysis 29 Laboratory Tests Test 11/05/16 22:39 11/05/16 22:44 11/05/16 23:03 11/06/16 04:37 Urine Opiates Screen NegativeNG/ML Urine Oxycodone Screen NegativeNG/ML Urine Methadone Screen NegativeNG/ML Urine Propoxyphene Screen NegativeNG/ML Urine Barbiturates Screen NegativeNG/ML Urine Tricyclic Antidepressants NegativeNG/ML Urine Phencyclidine Screen NegativeNG/ML Urine Amphetamines Screen NegativeNG/ML Urine Methamphetamines Screen NegativeNG/ML Urine Benzodiazepines Screen NegativeNG/ML Urine Cocaine Screen NegativeNG/ML Urine Cannabinoids Screen NegativeNG/ML White Blood Count 4.6T/MM3 Red Blood Count 5.07M/MM3 Hemoglobin 16.9GM/DL Hematocrit 48.9% Mean Corpuscular Volume 96.4UM3 Mean Corpuscular Hemoglobin 33.3UUG Mean Corpuscular Hemoglobin Concent 34.6GM/DL RDW Standard Deviation 52.5FL Platelet Count 229T/MM3 Mean Platelet Volume 9.4UM3 Immature Granulocyte % (Auto) 0.0% Neutrophils (%) (Auto) 37.6% Lymphocytes (%) (Auto) 53.7% Monocytes (%) (Auto) 6.3% Eosinophils (%) (Auto) 1.3% Basophils (%) (Auto) 1.1% Absolute Immature Granulocyte (auto 0.00T/MM3 Absolute Neutrophils (auto) 1.7T/MM3 Absolute Lymphocytes (auto) 2.5T/MM3 Absolute Monocytes (auto) 0.3T/MM3 Absolute Eosinophils (auto) 0.1T/MM3 Absolute Basophils (auto) 0.1T/MM3 Turbidity < 20 Sodium Level 151MEQ/L Potassium Level 3.7MEQ/L Chloride Level 110MEQ/L Carbon Dioxide Level 21MEQ/L Anion Gap 20MEQ/L Blood Urea Nitrogen 8.0MG/DL Creatinine 0.6MG/DL Glomerular Filtration Rate Calc 140 BUN/Creatinine Ratio 13RATIO Glucose Level 102MG/DL Calculated Osmolality 288MOSM/KG Calcium Level 9.1MG/DL Icterus Index < 2 Chemistry Specimen Hemolysis < 15 Salicylates Level < 1.0MG/DL Acetaminophen Level < 10UG/ML Alcohol, Quantitative 312MG/DL 168MG/DL Lab Scanned Report REFERENCE [id number] Test 11/06/16 07:28 11/06/16 08:47 11/06/16 12:26 Alcohol, Quantitative 113MG/DL 82MG/DL Turbidity < 20 Sodium Level 144MEQ/L Potassium Level 3.8MEQ/L Chloride Level 108MEQ/L Carbon Dioxide Level 24MEQ/L Anion Gap 12MEQ/L Blood Urea Nitrogen 9.0MG/DL Creatinine 0.5MG/DL Glomerular Filtration Rate Calc 173 BUN/Creatinine Ratio 18RATIO Glucose Level 95MG/DL Calculated Osmolality 276MOSM/KG Calcium Level 8.8MG/DL Magnesium Level 1.5MG/DL Total Bilirubin 1.00MG/DL Icterus Index < 2 Aspartate Amino Transf (AST/SGOT) 123U/L Alanine Aminotransferase (ALT/SGPT) 81U/L Alkaline Phosphatase 112U/L Troponin I 0.017ng/ml Total Protein 7.0G/DL Albumin 3.9G/DL Globulin 3.1G/DL Albumin/Globulin Ratio 1.3RATIO Lipase 40U/L Thyroid Stimulating Hormone (TSH) 0.88MIU/L Chemistry Specimen Hemolysis 29 EKG 11 beats of V tach Assessment & Plan Problems: (1) Ventricular tachycardia (paroxysmal) Status: Acute Assessment & Plan: Frequent runs up to 48 beats at a time. Amiodarone bolus and drip given, 2nd 150mg bolus given IV push with improvement of PVCs to a trigeminy pattern. K+ 3.8 but Mag 1.5. Will replace with 2gms IV to begin with. TSH normal. Obtained echo due to EtoH abuse to check EF. Trend serial troponin levels. (2) Alcohol dependence with withdrawal Status: Acute Qualifiers: Complication of substance-induced condition: uncomplicated Qualified Codes : F10.230 - Alcohol dependence with withdrawal, uncomplicated Assessment & Plan: Reports feeling a little shaky and anxious, Serax ordered prn (3) Suicidal ideation Status: Acute Assessment & Plan: reported that he was having suicidal thoughts on arrival last night. Wanted to end his life. He did not have a plan but has had suicide attempts in the past. Plan/Intensity of Service Amiodarone bolus and drip given, 2nd 150mg bolus given IV push with improvement of PVCs to a trigeminy pattern. K+ 3.8 but Mag 1.5. Will replace with 2gms IV to begin with. TSH normal. Obtained echo due to EtoH abuse to check EF. Trend serial troponin levels. 1730- Performed Adenosine test, first with 6mg then 12mg fast IV push. Rate was unchanged either time. Lidocaine 100mg IV was given, followed by 2mg/min drip which kept Hugh in a SR for transfer to [facility] for admission under Dr. Gomez Code Status Full Code Hospital Course Summary Disclaimer The hospital course summary below is not to be considered part of the above Progress Note. OZIEL MATAMOROS MD 11/11/16 1022: Past Medical History Current Medications Home Meds Reported Medications [No Routine Meds] No Conflict Check 05/15/16 Discontinued Reported Medications Ibuprofen (Ibuprofen) 800 Mg Tablet, 4 TAB PO DAILY for ARTHRITIS, TAB 11/05/16 Allergies: Coded Allergies: Penicillins (Verified Allergy, Unknown, 11/06/16) Assessment & Plan Hospital Course Summary Hospital Course Summary After examining the patient I agree with the above assessment. I am involved in the formulation of the patient's plan of care. SARAH BETH GOLDBERG APRN November 06, 2016 15:19 OZIEL MATAMOROS MD November 11, 2016 10:22
[2016-11-06] MEDS ORDERED: NICOTINE 7 MG PATCH TD PRN (16:00)
--- NOTE | 2016-11-06 16:17 | NUR ---
MELODY Increase in the number and frequency of shashank 3's noted over the last few minutes.
--- NOTE | 2016-11-06 16:29 | NUR ---
VTACH 9 beat run of vtach, very frequent PVCs.
--- NOTE | 2016-11-06 16:32 | NUR ---
RUNS of VT 18 beats VT followed by two sinus beats, then back into a 13 beat run of VT. Rhythm perfuses. Patient asymptomatic. Monitor has been alarming almost constantly due to the volume of couplets, triples, and runs.
[2016-11-06] MEDS ORDERED: ENOXAPARIN 40 MG/0.4 ML INJECTION SQ SCH (17:45)
[2016-11-06] MEDS ORDERED: LIDOCAINE (2%) 100 MG/5 ML PF SYRINGE IV ONE (18:00)
[2016-11-06] MEDS ORDERED: ADENOSINE 6mg/2ml INJECTION vl IV ONE (18:00)
[2016-11-06] MEDS ORDERED: ADENOSINE 12mg/4ml INJECTION vl IV ONE (18:00)
--- NOTE | 2016-11-06 18:10 | NUR ---
CARDIAC MEDS/INTERVENTION Dr Hooker is here and intervention with cardiac medications has been provided at the bedside. Adenosine 6 mg IV was given by rapid push followed by 20 ml of NS by rapid push. Adenosine 12 mg IV was given in the same manner several minutes later. Lidocaine 100 mg IV followed by slow IV push. Shortly afterward, a reduction in PVCs was noted. Metoprolol 5 mg IV was then ordered and given by IV push. These meds were all administered into the left hand. The IV site had excellent blood return prior to administration. The patient tolerated these interventions well.
[2016-11-06] MEDS ORDERED: LIDOCAINE IV SCH (18:15)
[2016-11-06] MEDS ORDERED: D5W IV SCH (18:15)
--- NOTE | 2016-11-06 18:16 | NUR ---
LIDOCAINE DRIP Lidocaine drip initiated at 30 mls/hr per Dr Hooker's order. He orders to continue the Amiodarone as well for the treatment of V tach. He has talked with the patient about transfer to [facility] under the care of an forklift mechanic Dr Gomez in order to further evaluate his arrhythmia.
--- NOTE | 2016-11-06 18:35 | DSPDOC ---
SARAH BETH GOLDBERG JOB PRESS OPERATOR 11/06/16 1835: General Date Date DATE: 11/06/16 TIME: 18:31 Attending Physician Oziel Matamoros MD Admitting Physician Oziel Matamoros MD Consulting Physician Admitting Diagnosis V. tach Discharge Diagnosis v Tach Laboratory Laboratory Tests Test 11/05/16 22:39 11/05/16 22:44 11/05/16 23:03 11/06/16 04:37 Urine Opiates Screen NegativeNG/ML Urine Oxycodone Screen NegativeNG/ML Urine Methadone Screen NegativeNG/ML Urine Propoxyphene Screen NegativeNG/ML Urine Barbiturates Screen NegativeNG/ML Urine Tricyclic Antidepressants NegativeNG/ML Urine Phencyclidine Screen NegativeNG/ML Urine Amphetamines Screen NegativeNG/ML Urine Methamphetamines Screen NegativeNG/ML Urine Benzodiazepines Screen NegativeNG/ML Urine Cocaine Screen NegativeNG/ML Urine Cannabinoids Screen NegativeNG/ML White Blood Count 4.6T/MM3 Red Blood Count 5.07M/MM3 Hemoglobin 16.9GM/DL Hematocrit 48.9% Mean Corpuscular Volume 96.4UM3 Mean Corpuscular Hemoglobin 33.3UUG Mean Corpuscular Hemoglobin Concent 34.6GM/DL RDW Standard Deviation 52.5FL Platelet Count 229T/MM3 Mean Platelet Volume 9.4UM3 Immature Granulocyte % (Auto) 0.0% Neutrophils (%) (Auto) 37.6% Lymphocytes (%) (Auto) 53.7% Monocytes (%) (Auto) 6.3% Eosinophils (%) (Auto) 1.3% Basophils (%) (Auto) 1.1% Absolute Immature Granulocyte (auto 0.00T/MM3 Absolute Neutrophils (auto) 1.7T/MM3 Absolute Lymphocytes (auto) 2.5T/MM3 Absolute Monocytes (auto) 0.3T/MM3 Absolute Eosinophils (auto) 0.1T/MM3 Absolute Basophils (auto) 0.1T/MM3 Turbidity < 20 Sodium Level 151MEQ/L Potassium Level 3.7MEQ/L Chloride Level 110MEQ/L Carbon Dioxide Level 21MEQ/L Anion Gap 20MEQ/L Blood Urea Nitrogen 8.0MG/DL Creatinine 0.6MG/DL Glomerular Filtration Rate Calc 140 BUN/Creatinine Ratio 13RATIO Glucose Level 102MG/DL Calculated Osmolality 288MOSM/KG Calcium Level 9.1MG/DL Icterus Index < 2 Chemistry Specimen Hemolysis < 15 Salicylates Level < 1.0MG/DL Acetaminophen Level < 10UG/ML Alcohol, Quantitative 312MG/DL 168MG/DL Lab Scanned Report REFERENCE [id number] Test 11/06/16 07:28 11/06/16 08:47 11/06/16 12:26 Alcohol, Quantitative 113MG/DL 82MG/DL Turbidity < 20 Sodium Level 144MEQ/L Potassium Level 3.8MEQ/L Chloride Level 108MEQ/L Carbon Dioxide Level 24MEQ/L Anion Gap 12MEQ/L Blood Urea Nitrogen 9.0MG/DL Creatinine 0.5MG/DL Glomerular Filtration Rate Calc 173 BUN/Creatinine Ratio 18RATIO Glucose Level 95MG/DL Calculated Osmolality 276MOSM/KG Calcium Level 8.8MG/DL Magnesium Level 1.5MG/DL Total Bilirubin 1.00MG/DL Icterus Index < 2 Aspartate Amino Transf (AST/SGOT) 123U/L Alanine Aminotransferase (ALT/SGPT) 81U/L Alkaline Phosphatase 112U/L Troponin I 0.017ng/ml Total Protein 7.0G/DL Albumin 3.9G/DL Globulin 3.1G/DL Albumin/Globulin Ratio 1.3RATIO Lipase 40U/L Thyroid Stimulating Hormone (TSH) 0.88MIU/L Chemistry Specimen Hemolysis 29 Laboratory Tests Test 11/05/16 22:39 11/05/16 22:44 11/05/16 23:03 11/06/16 04:37 Urine Opiates Screen NegativeNG/ML Urine Oxycodone Screen NegativeNG/ML Urine Methadone Screen NegativeNG/ML Urine Propoxyphene Screen NegativeNG/ML Urine Barbiturates Screen NegativeNG/ML Urine Tricyclic Antidepressants NegativeNG/ML Urine Phencyclidine Screen NegativeNG/ML Urine Amphetamines Screen NegativeNG/ML Urine Methamphetamines Screen NegativeNG/ML Urine Benzodiazepines Screen NegativeNG/ML Urine Cocaine Screen NegativeNG/ML Urine Cannabinoids Screen NegativeNG/ML White Blood Count 4.6T/MM3 (4.5-11.0) Red Blood Count 5.07M/MM3 (4.50-5.90) Hemoglobin 16.9GM/DL (13.5-17.5) Hematocrit 48.9% (41-53) Mean Corpuscular Volume 96.4UM3 (80-100) Mean Corpuscular Hemoglobin 33.3UUG (26-34) Mean Corpuscular Hemoglobin Concent 34.6GM/DL (31-37) RDW Standard Deviation 52.5FL (36.9-50.2) Platelet Count 229T/MM3 (130-400) Mean Platelet Volume 9.4UM3 (9.4-12.4) Immature Granulocyte % (Auto) 0.0% (0.0-0.5) Neutrophils (%) (Auto) 37.6% (33-66) Lymphocytes (%) (Auto) 53.7% (23-45) Monocytes (%) (Auto) 6.3% (0-9.0) Eosinophils (%) (Auto) 1.3% (0-4) Basophils (%) (Auto) 1.1% (0-2) Absolute Immature Granulocyte (auto 0.00T/MM3 (0.00-0.03) Absolute Neutrophils (auto) 1.7T/MM3 (1.8-7.7) Absolute Lymphocytes (auto) 2.5T/MM3 (1-4.8) Absolute Monocytes (auto) 0.3T/MM3 (0-0.8) Absolute Eosinophils (auto) 0.1T/MM3 (0-0.5) Absolute Basophils (auto) 0.1T/MM3 (0-0.2) Turbidity < 20 (0-20) Sodium Level 151MEQ/L (134-144) Potassium Level 3.7MEQ/L (3.6-5) Chloride Level 110MEQ/L (98-107) Carbon Dioxide Level 21MEQ/L (22-30) Anion Gap 20MEQ/L (5-15) Blood Urea Nitrogen 8.0MG/DL (9-20) Creatinine 0.6MG/DL (0.8-1.5) Glomerular Filtration Rate Calc 140 BUN/Creatinine Ratio 13RATIO (6-26) Glucose Level 102MG/DL (75-110) Calculated Osmolality 288MOSM/KG (261-280) Calcium Level 9.1MG/DL (8.4-10.2) Icterus Index < 2 (0-7) Chemistry Specimen Hemolysis < 15 (0-25) Salicylates Level < 1.0MG/DL (2-20) Acetaminophen Level < 10UG/ML (10-30) Alcohol, Quantitative 312MG/DL (<10) 168MG/DL (<10) Lab Scanned Report REFERENCE [id number] Test 11/06/16 07:28 11/06/16 08:47 11/06/16 12:26 Alcohol, Quantitative 113MG/DL (<10) 82MG/DL (<10) Turbidity < 20 (0-20) Sodium Level 144MEQ/L (134-144) Potassium Level 3.8MEQ/L (3.6-5) Chloride Level 108MEQ/L (98-107) Carbon Dioxide Level 24MEQ/L (22-30) Anion Gap 12MEQ/L (5-15) Blood Urea Nitrogen 9.0MG/DL (9-20) Creatinine 0.5MG/DL (0.8-1.5) Glomerular Filtration Rate Calc 173 BUN/Creatinine Ratio 18RATIO (6-26) Glucose Level 95MG/DL (75-110) Calculated Osmolality 276MOSM/KG (261-280) Calcium Level 8.8MG/DL (8.4-10.2) Magnesium Level 1.5MG/DL (1.6-2.3) Total Bilirubin 1.00MG/DL (0.20-1.30) Icterus Index < 2 (0-7) Aspartate Amino Transf (AST/SGOT) 123U/L (17-59) Alanine Aminotransferase (ALT/SGPT) 81U/L (21-72) Alkaline Phosphatase 112U/L (38-126) Troponin I 0.017ng/ml (0-0.12) Total Protein 7.0G/DL (6.3-8.2) Albumin 3.9G/DL (3.5-5.0) Globulin 3.1G/DL (2.4-3.6) Albumin/Globulin Ratio 1.3RATIO (1.1-2.2) Lipase 40U/L (23-300) Thyroid Stimulating Hormone (TSH) 0.88MIU/L (0.47-4.68) Chemistry Specimen Hemolysis 29 (0-25) History of Present Illness Hugh is a 56 year old man who presented to the ED last night for request of detox. He wanted to be admitted to after he detoxes because he reported that he was having suicidal thoughts. Wanted to end his life. He did not have a plan but has had suicide attempts in the past. He has been drinking about a liter of vodka daily for the last few weeks. Has a history of ETOH abuse, denied any other drug usage. Went to and was brought in by his friends. Earlier this afternoon I was called to see the patient while he was still in the ED. He had 11 beats of Ventricular tachycardia caught on EKG. He is completely asymptomatic and unaware of the arrhythmia. He denies chest pain, pressure or tightness, denies dyspnea, nausea or vomiting. Reports some diarrhea earlier in the week and now feels shaky and somewhat anxious. Objective Vital Signs Vital signs Vital Signs 11/06/16 11/06/16 11/06/16 11/06/16 08:54 09:09 09:24 09:39 Temp 99.4 Pulse 128 95 111 104 B/P 142/98 Pulse Ox 96 96 96 96 O2 Delivery Room Air Room Air Room Air Room Air 11/06/16 11/06/16 11/06/16 11/06/16 09:54 10:09 10:24 10:39 Pulse 101 104 102 120 B/P 125/80 Pulse Ox 96 95 96 97 O2 Delivery Room Air Room Air 11/06/16 11/06/16 11/06/16 11/06/16 10:54 11:09 11:17 11:32 Temp 99.1 Pulse 119 108 108 133 Resp 16 B/P 154/106 Pulse Ox 97 95 96 96 O2 Delivery Room Air Room Air 11/06/16 11/06/16 11/06/16 11/06/16 11:47 12:02 12:11 12:26 Pulse 121 116 83 82 Resp 25 24 24 16 B/P 155/108 Pulse Ox 95 96 96 95 O2 Delivery Room Air Room Air Room Air 11/06/16 11/06/16 11/06/16 11/06/16 12:30 12:45 13:40 13:45 Temp 99.1 Pulse 82 84 84 127 Resp 16 16 16 42 B/P 160/86 146/77 146/77 Pulse Ox 95 96 96 98 O2 Delivery Room Air Room Air Room Air Room Air 11/06/16 11/06/16 11/06/16 11/06/16 13:55 14:01 14:15 14:31 Temp 98.6 Pulse 86 95 86 86 Resp 22 32 32 B/P 157/119 154/72 Pulse Ox 97 96 95 O2 Delivery Room Air Room Air Room Air 11/06/16 11/06/16 11/06/16 11/06/16 14:45 15:00 15:05 15:10 Pulse 105 113 85 81 Resp 20 28 B/P 152/91 156/87 157/79 Pulse Ox 96 95 96 96 O2 Delivery Room Air Room Air Room Air Room Air 11/06/16 11/06/16 11/06/16 11/06/16 15:16 15:21 15:25 15:30 Pulse 90 85 82 84 Resp 26 B/P 151/77 156/100 157/93 156/98 Pulse Ox 96 96 96 96 O2 Delivery Room Air Room Air Room Air Room Air 11/06/16 11/06/16 11/06/16 11/06/16 15:36 15:41 15:58 16:01 Pulse 85 90 90 95 Resp B/P 159/80 176/104 166/98 Pulse Ox 96 97 97 97 O2 Delivery Room Air Room Air Room Air Room Air 11/06/16 11/06/16 11/06/16 11/06/16 16:06 16:15 16:30 16:30 Temp 97.7 Pulse 91 94 93 93 Resp 21 22 24 33 B/P 160/100 165/109 168/100 Pulse Ox 97 96 97 O2 Delivery Room Air Room Air Room Air 11/06/16 11/06/16 11/06/16 11/06/16 16:46 17:15 17:45 18:01 Pulse 91 94 118 90 Resp 33 45 40 30 B/P 158/100 133/69 137/101 164/89 Pulse Ox 96 97 95 95 O2 Delivery Room Air Room Air Room Air Room Air 11/06/16 11/06/16 11/06/16 11/06/16 18:02 18:05 18:10 18:11 Pulse 110 81 82 100 Resp 30 22 B/P 150/82 141/82 Pulse Ox 94 95 O2 Delivery Room Air Room Air 11/06/16 18:20 Pulse 81 Resp 23 B/P 148/93 Pulse Ox 96 O2 Delivery Room Air Telemetry Ectopy: PVC, Bigeminey, Trigeminey, Runs >6, Triplets, Matthews Height (Feet): 5 Height (Inches): 11.00 Weight (Kilograms): 103.700 General Alert, Obese, Cooperative, No Acute Distress ENMT (Brief) mucosa moist Neck (Brief) NOT FOUND: JVD, carotid bruits Respiratory (Brief) clear all leggett, equal bilaterally (diminished anteriorly) Cardiovascular (Brief) NOT FOUND: click, gallop, murmur, pedal edema, regular rate, regular rhythm, rub Abdomen (Brief) BS normo active x4, soft, NOT FOUND: tender Integumentary (Brief) pink, warm Psychiatric (Brief) alert, attentive, normal affect, oriented Laboratory Laboratory Laboratory Tests 11/05/16 22:44 11/06/16 12:26 Laboratory Tests 11/05/16 22:44 Medications Current Medications Multivitamins/ Minerals/Thiamine HCl/Folic Acid/ Sodium Chloride (M.v.i. Adult/ Vit. B1/Folate/ Normal Saline IV) 1,011.2 ml @ 1,000 mls/ hr Q1H1M ONCE IV Last administered on 11/05/16 23:07; Start 11/05/16 at 22:45; Stop 11/05/16 at 23: 45; Status DC Diltiazem HCl 10 mg 10 mg O ONCE IV Last administered on 11/06/16 12:01; Start 11/06/16 at 12:00; Stop 11/06/16 at 12:01; Status DC Amiodarone HCl 150 mg/Sodium Chloride 103 ml @ 600 mls/hr NOW ONCE IV Last administered on 11/06/16 12:45; Start 11/06/16 at 12:15; Stop 11/06/16 at 12:25; Status DC Amiodarone HCl 900 mg/Sodium Chloride 518 ml @ 33.33 mls/ hr [id number] IV Last administered on 11/06/16 12:40; Start 11/06/16 at 12:15 Magnesium Sulfate/ Dextrose/Water (Magnesium Sulfate/D5W) 102 ml @ 100 mls/hr Q1H2M IV Last administered on 11/06/16 14:34; Start 11/06/16 at 13:00; Stop 11/06 at 15:02; Status DC Amiodarone HCl (Amiodarone) 150 mg O ONCE IV Last administered on 11/06/16 14: 55; Start 11/06/16 at 15:00; Stop 11/06/16 at 15:01; Status DC Oxazepam (Serax) 15 mg PRN PRN PO PER INSTRUCTIONS Last administered on 15:51; Start 11/06/16 at 15:00 Nicotine (Nicoderm) 7 mg DAILY PRN TD ; Start 11/06/16 at 16:00 Nicotine (Nicoderm Patch Removal) 1 removal DAILY TD ; Start 11/07/16 at 09:00 Enoxaparin Sodium (Lovenox) 40 mg DAILY SQ ; Start 11/06/16 at 17:45 Metoprolol Tartrate (Lopressor) 5 mg O ONCE IV Last administered on 11/06/16 18:01; Start 11/06/16 at 18:00; Stop 11/06/16 at 18:01; Status DC Adenosine (Adenocard) 12 mg O ONCE IV Last administered on 11/06/16 18:11; Start 11/06/16 at 18:00; Stop 11/06/16 at 18:01; Status DC Lidocaine HCl 100 mg 100 mg O ONCE IV Last administered on 11/06/16 18:07; Start 11/06/16 at 18:00; Stop 11/06/16 at 18:01; Status DC Lidocaine/ Dextrose/Water (Xylocaine/D5W) 550 ml @ 30 mls/hr [id number] IV Last administered on 11/06/16 18:16; Start 11/06/16 at 18:15 Radiology DATE OF EXAM: 11/06/16 ORDERING DOCTOR: OZIEL MATAMOROS MD TYPE OF EXAM: CHEST 1 VIEW REASON FOR EXAM: arrhythmias, chronic cough Indication: ITS.REASON: arrhythmias, chronic cough PROCEDURE: CHEST 1 VIEW: Encounter: Initial Comparison: June 15, 2016 Findings: The lungs are stable in appearance without new focal airspace consolidation. There is no pleural effusion or pneumothorax. The heart size, pulmonary vascularity and mediastinal contours are unchanged. IMPRESSION: Stable appearance of the chest without acute cardiopulmonary disease. Hospital Course Failed adenosine Test with 6mg and 12mg. Lidocine 100mg IV given and Lidocaine drip began at 2mg/min. Transfer arranged to Dr. Martin at Problems: (1) Ventricular tachycardia (paroxysmal) Status: Acute Assessment & Plan: Frequent runs up to 48 beats at a time. Amiodarone bolus and drip given, 2nd 150mg bolus given IV push with improvement of PVCs to a trigeminy pattern. K+ 3.8 but Mag 1.5. Will replace with 2gms IV to begin with. TSH normal. Obtained echo due to EtoH abuse to check EF. Trend serial troponin levels. (2) Alcohol dependence with withdrawal Status: Acute (3) Suicidal ideation Status: Acute Code Status Full Code Home Meds Reported Medications [No Routine Meds] No Conflict Check 05/15/16 Discontinued Reported Medications Ibuprofen (Ibuprofen) 800 Mg Tablet, 4 TAB PO DAILY for ARTHRITIS, TAB 11/05/16 Discharge Disposition Transfer is stable condition to in the care of OZIEL Hendricks MD 11/11/16 1023: Hospital Course Home Meds Reported Medications [No Routine Meds] No Conflict Check 05/15/16 Discontinued Reported Medications Ibuprofen (Ibuprofen) 800 Mg Tablet, 4 TAB PO DAILY for ARTHRITIS, TAB 11/05/16 Discharge Disposition After examining the patient I agree with the above assessment. I am involved in the formulation of the patient's plan of care. SARAH BETH GOLDBERG APRN November 06, 2016 18:35 OZIEL MATAMOROS MD November 11, 2016 10:23
--- NOTE | 2016-11-06 18:40 | NUR ---
AMIODARONE DRIP RATE Rate reduced to 0.5 mg /minute.
--- NOTE | 2016-11-06 19:30 | NUR ---
ARRHYTHMIA IMPROVED Monitor has shown a drastic improvement in his rhythm since Lidocaine was initiated. PVCs are now fairly rare with underlying SR with borderline BBB.
--- NOTE | 2016-11-06 19:51 | NUR ---
REPORT TO DAMASO Full report given to Jeanna NAVARRETE at [facility], ICU. Patient will transfer to room 7.
--- NOTE | 2016-11-06 20:12 | NUR ---
DISCHARGE Patient discharged to [facility] ICU 7 per [facility] at 2009. Report was given to EMS prior to transfer. Patient transferred on cardiac rehabilitation program director, with Lidocaine and Amiodarone drips infusing. Rhythm sinus rhythm infrequent PVCs reading on the monitor since lidocaine drip was started. With activity transferring to EMS cart, some trigeminy was again noted. Patient had requested full code status and this was relayed to EMS and ROSALBA Meeks at [place].
--- NOTE | 2016-11-07 08:15 | ECHOF ---
DATE OF PROCEDURE 11/06/2016 INDICATIONS This is a two-dimensional echo with spectral Doppler, color-flow, and M-mode. It was obtained in a patient with ventricular tachycardia. DESCRIPTION OF PROCEDURE Left atrium is mildly dilated. Left ventricular end-diastolic dimension is normal. Left ventricular wall thickness is increased. LV systolic function is normal with ejection fraction of 65%. Right atrium is normal. Right ventricle is normal. Aortic root dimension is normal. Mitral valve is morphologically normal with trace of mitral regurgitation. Aortic valve appears to be normal. Tricuspid valve shows no tricuspid regurgitation. Pulmonary valve shows no pulmonary insufficiency. There is no pericardial effusion. IMPRESSION 1. Technically difficult study. 2. Left atrial dilation. 3. Normal LV systolic function with ejection fraction of 65%. 4. Concentric left ventricular hypertrophy. 5. Trace of mitral regurgitation. MTDD
[2016-11-07] MEDS ORDERED: NICOTINE PATCH REMOVAL TD SCH (09:00)
--- NOTE | 2016-11-08 09:47 | DI ---
Indication: ITS.REASON: arrhythmias, chronic cough PROCEDURE: CHEST 1 VIEW: Encounter: Initial Comparison: June 15, 2016 Findings: The lungs are stable in appearance without new focal airspace consolidation. There is no pleural effusion or pneumothorax. The heart size, pulmonary vascularity and mediastinal contours are unchanged. IMPRESSION: Stable appearance of the chest without acute cardiopulmonary disease. .
[2016-11-09] MEDS ORDERED: NORMAL SALINE 1,000 ML IV ONE (09:30)
--- NOTE | 2016-11-09 11:24 | NUR ---
FOLLOW UP THIS WORKER RECEIVED CALL FROM PT ON THIS DATE. PT REPORTED THAT HE WAS STILL IN HOSPITAL IN HOME. PT WANTING TO CANCEL HIS APPOINTMENT WITH [facility] THIS WEEK. PT REPORTED THAT HE WOULD CONTACT THIS WORKER WHEN HE WAS BACK IN TOWN FOR ADDITIONAL ASSISTANCE. THIS WORKER CALLED AND SPOKE TO [employer], NEELIMA. NOTIFIED OF PT'S REQUEST TO CANCEL APPOINTMENT. Addendum: 11/09/16 at 1126 by JANET PUGH Amended: Links added.
== END 2016-11-06 20:10 | disposition short-term general hospital (02) ==
LOC: ED 22:10 → EDHOLD 11-06 13:37 → CCU 11-06 13:40
PROVIDERS: ADMIT Internal Medicine Cardiovascular Disease; ATTEND Internal Medicine Cardiovascular Disease
DX: I47.2 Ventricular tachycardia (principal); F10.230 Alcohol dependence with withdrawal, uncomplicated; Y90.8 Blood alcohol level of 240 mg/100 ml or more; R45.851 Suicidal ideations; Z91.5 Personal history of self-harm; I10 Essential (primary) hypertension; F32.9 Major depressive disorder, single episode, unspecified; M10.9 Gout, unspecified; Z79.1 Long term (current) use of non-steroidal anti-inflammatories (NSAID)
CPT/HCPCS: 36000; 36415; 80048; 80053; 80306; 80307; 83690; 83735; 84443; 84484; 85025; 93005; 93306; 96361; 96365; 96366; 96372; 96375; 99218